=== PATIENT | male | born 1935 | race Caucasian/White ===

== ENCOUNTER → 2019-06-11 08:11 | Outpatient (BNVA) | payer MEDICARE, SELFPAY | PROVIDERS: Family Provider Internal Medicine; PCP Internal Medicine; Visit Provider Internal Medicine Cardiovascular Disease | DX: I50.9 Heart failure, unspecified (principal) | CPT/HCPCS: 80048; 83880 ==

== ENCOUNTER → 2019-11-18 10:59 | Outpatient (BNVA) | payer OTHER, SELFPAY | PROVIDERS: Family Provider Internal Medicine; PCP Internal Medicine; Visit Provider Internal Medicine Cardiovascular Disease | DX: R06.02 Shortness of breath (principal); I50.22 Chronic systolic (congestive) heart failure; I42.8 Other cardiomyopathies | CPT/HCPCS: 80048; 83880 ==

== ENCOUNTER 2020-01-06 12:40 | Outpatient (CLI) | payer OTHER, MEDICARE, SELFPAY ==
--- NOTE | 2020-01-06 13:04 | USCV_ITS ---
Manny Melendez Age: 84 Gender: M : 1935 Exam Date: 01/06/2020 13:29 Ordering Phys: Dorothy Webster MD ([email or web address]) Technologist: Zachary Colmenares [place] [facility] [place]: ARRTH BP: 118 / 59 HR: 55 Rhythm: Sinus Technical Quality: Good MEASUREMENTS (Male / Female) Normal Values 2D ECHO LV Diastolic Diameter PLAX 4.9 cm 4.2 - 5.9 / 3.9 - 5.3 cm LV Systolic Diameter PLAX 3.7 cm IVS Diastolic Thickness 0.9 cm 0.6 - 1.0 / 0.6 - 0.9 cm IVS Systolic Thickness 1.3 cm LVPW Diastolic Thickness 1.0 cm 0.6 - 1.0 / 0.6 - 0.9 cm LVPW Systolic Thickness 1.3 cm LVOT Diameter 2.3 cm LV Ejection Fraction 2D Teich 47.9 % LV Ejection Fraction MOD 2C 56.2 % LV Ejection Fraction 2C AL 57.8 % LA Diameter 3.8 cm LA Width 3.9 cm LA Height 4.9 cm RA Width 3.2 cm RA Height 5.5 cm Aorta at Sinotubular Diameter 1.2 cm M-MODE LV Diastolic Diameter MM 5.3 cm 4.2 - 5.9 / 3.9 - 5.3 cm LV Systolic Diameter MM 3.2 cm LV Ejection Fraction MM Teich 70.4 % IVS Diastolic Thickness MM 1.1 cm 0.6 - 1.0 / 0.6 - 0.9 cm IVS Systolic Thickness MM 1.8 cm LVPW Diastolic Thickness MM 1.6 cm 0.6 - 1.0 / 0.6 - 0.9 cm LVPW Systolic Thickness MM 2.1 cm RV Diastolic Diameter MM 1.1 cm Aortic Annulus Diameter 3.5 cm LA Ao Ratio MM 1.1 DOPPLER AV Peak Velocity 154.0 cm/s LVOT Peak Velocity 108.0 cm/s AV Area Cont Eq vti 3.1 cm squared AV Area Cont Eq pk 3.0 cm squared MV Area PHT 5.8 cm squared Mitral E to A Ratio 0.5 MV E' Velocity 8.0 cm/s Mitral E to MV E' Ratio 7.3 Mitral E to LV E' Lateral Ratio 5.9 Mitral E to LV E' Septal Ratio 9.4 TR Peak Velocity 271.0 cm/s TR Peak Gradient 29.4 mmHg TV Peak E Velocity 69.0 cm/s Right Atrial Pressure 3.0 mmHg Pulmonary Artery Systolic Pressu 32.4 mmHg PV Peak Velocity 142.0 cm/s FINDINGS Left Ventricle Diffuse hypokinesia of the left ventricle with an ejection fraction of 47%. Because of the frequent ventricular arrhythmia, ejection fraction estimation and segmental wall motion analysis difficult. Right Ventricle Normal right ventricular size and systolic function. Right Atrium Upper limit of normal size. Left Atrium Upper limit of normal size Mitral Valve Thickened mitral valve. Mild mitral annular calcification. Mild to moderate mitral valve regurgitation. Aortic Valve Thickened aortic valve. Trace aortic valve regurgitation. Tricuspid Valve Trace tricuspid valve regurgitation. Pulmonic Valve No gross abnormalities noted Pericardium No pericardial effusion. Aorta Normal aortic annulus size. CONCLUSIONS Diffuse hypokinesia of the left ventricle with an ejection fraction of 47%. Both atria, pulmonary normal size.Thickened mitral valve. Mild mitral annular calcification. Mild to moderate mitral valve regurgitation. Thickened aortic valve. Trace aortic valve regurgitation. Trace tricuspid valve regurgitation. Estimated pulmonary artery peak systolic pressure 32 mmHg There is no pericardial effusion. There are no intracardiac masses. No previous study is available for comparison. Dr Dorothy Webster MD FAC (Electronically Signed) Final Date: 06 January 2020 20:17 S
== END 2020-01-06 12:41 | disposition home or self-care (01) ==
PROVIDERS: Family Provider Internal Medicine; PCP Internal Medicine; Visit Provider Internal Medicine Cardiovascular Disease
DX: I42.8 Other cardiomyopathies (principal); I08.3 Combined rheumatic disorders of mitral, aortic and tricuspid valves
CPT/HCPCS: 93306

== ENCOUNTER 2020-05-23 09:55 | Emergency (ER) | payer OTHER, MEDICARE, SELFPAY ==
[2020-05-23 10:09] VITALS: BP 156/66; PULSE 56; RESP 15; TEMP 36.3; O2SAT 97; BMI 26.4
--- NOTE | 2020-05-23 11:38 | W.ED.GENADLT ---
HPI - General Adult General: Chief complaint: General Medical Stated complaint: wants checked for kidney stones Time Seen by Provider: 05/23/20 11:08 History of Present Illness: HPI narrative: 85-year-old male presents emergency room with complaint of left-sided flank pain that began 2-1/2 days ago. It got progressively worse until this morning is actually a little better this morning. He states it seemed to begin resolving last night. His appetite has been poor he is not had a bowel movement for the last 3 days now. Denies any fever sweats chills nausea vomiting or diarrhea. [facility] He had seen Dr. Webster earlier this week for his cardiac issues and after that he began to have the discomfort. He is not noted any hematuria. He was thought to have a kidney stone in the past and states this feels similar to that. Onset (ago): day(s) (2-/2) Location: back Radiation: flank Severity: moderate Quality: stabbing Pain Consistency: intermittent (Improved) Relieving factors: rest (Lying flat) Exacerbating factors: other (Standing or ambulating) Associated symptoms: Deny chest pain, confusion, cough, diaphoresis, decreased appetite, dyspnea, fevers/chills, headache(s), malaise, nausea, rash, palpitations, seizures, short of breath, syncope, vomiting or weakness Treatments prior to arrival: none Review of Systems Const: Denies: malaise or diaphoresis ENMT: Denies: throat pain, ear or mastoid pain, nasal discharge or nasal congestion Card: Denies: chest pain, palpitations or syncope Resp: Denies: dyspnea GI: Denies: nausea or vomiting : Denies: flank pain, dysuria, urinary frequency or urinary urgency Skin/Breast: Denies: rash Neuro: Denies: headache(s) or confusion PFS ED PFSH: Medical History Benign essential HTN Chronic systolic heart failure Ischemic cardiomyopathy Non-ischemic cardiomyopathy Non-rheumatic mitral regurgitation Ventricular arrhythmia Family History Sister CAD (coronary artery disease) Brother CAD (coronary artery disease) Cancer Lung disease Denies family history of Diabetes Clotting disorder Dementia Hyperlipidemia Chronic kidney disease (CKD) Suicide Anesthesia complication Bleeding disorder Hypertension Stroke Social History Smoking and tobacco status: never smoked Alcohol intake: never Substance/Drug Use: never Physical Exam Const: COMMON NORMALS: no acute distress GENERAL APPEARANCE: cooperative and comfortable ORIENTATION/CONSCIOUSNESS: Yes awake, Yes oriented to person, Yes oriented to place and Yes oriented to time HENMT: COMMON NORMALS: hearing grossly normal bilaterally Neck/C-Spine: COMMON NORMALS: no JVD Resp: COMMON NORMALS: normal respiratory effort, No retractions, No use of accessory muscles and clear to auscultation bilaterally AUSCULTATION: clear to auscultation bilaterally Cardio: COMMON NORMALS: no JVD, regular rate, regular rhythm and No murmurs present (Cardio) RATE: regular rate RHYTHM: regular rhythm GI: COMMON NORMALS: Soft to palpation and No hepatosplenomegaly present AUSCULTATION: Yes normoactive bowel sounds PALPATION: Yes Soft to palpation, No Tenderness to palpation present (GI), No Guarding due to palpation present (GI) and Yes No hepatosplenomegaly present Extremity: COMMON NORMALS: normal to inspection, capillary refill normal, no clubbing, cyanosis or edema, no calf tenderness and no pedal edema Neuro: SENSORIUM/ORIENTATION: Yes oriented to person, Yes oriented to place and Yes oriented to time Skin: COMMON NORMALS: no rashes or lesions noted GENERAL SKIN EXAM: no rashes or lesions noted Course Vital Signs: Vital signs: Vital Signs Temperature 97.3 F L 05/23/20 10:09 Pulse Rate 64 05/23/20 14:00 Respiratory Rate 18 05/23/20 14:00 Blood Pressure 149/86 05/23/20 14:00 Pulse Oximetry 97 05/23/20 14:00 MDM - General Adult MDM Narrative: Medical decision making narrative: CT and UA are unremarkable for evidence of a stone but do show evidence suggestive of bladder outlet obstruction on post void residual patient still is over 400 cc in his bladder given the fact he is having renal colic with that I think he is impending urinary retention. Discussed this with him I think at this point probably the best thing to do is go ahead and put a Eli in him on Monday that if we discharge him now without doing any other intervention he most likely will end up back here in the next 2 days with full blown bladder outlet obstruction and may result in further complications. He is agreeable to this we will start him on tamsulosin and have him follow-up with Dr. Mart next week. Lab Data: Labs: Lab Results 05/23/20 05/23/20 05/23/20 Range/Units 11:29 11:29 11:29 WBC 7.1 (4.0-10.0) 10^3/ uL RBC 5.03 (4.1-5.3) 10^6/u L Hgb 14.1 (11.7-16.6) g/dL Hct 44.2 (42.0-52.0) % MCV 87.9 (80-94) fL MCH 28.0 (28.0-34.0) pg MCHC 31.9 (30.0-36.0) g/dL RDW 13.3 (12.1-15.1) % Plt Count 166 (130-400) 10^3/c mm MPV 10.8 H (7.4-10.4) fL Neut % (Auto) 73.1 % Lymph % (Auto) 15.4 % Payne % (Auto) 10.6 % Eos % (Auto) 0.3 % Baso % (Auto) 0.3 % Neut # (Auto) 5.16 (1.8-7.7) 10^3/u L Lymph # (Auto) 1.1 (0.8-4.8) 10^3/u L Payne # (Auto) 0.8 (0.2-0.9) 10^3/u L Eos # (Auto) 0.0 (0.0-0.8) 10^3/u L Baso # (Auto) 0.0 (0.0-0.1) 10^3/u L Nucleated RBC % (a uto) 0 % Nucleated RBCs # 0.0 /100WBC Sodium 135 L (136-145) mmol/L Potassium 4.2 (3.5-5.1) mmol/L Chloride 99 (98-107) mmol/L Carbon Dioxide 25 (22-29) mmol/L Anion Gap 15.2 (5-19) BUN 12 (8-23) mg/dL Creatinine 1.1 (0.7-1.2) mg/dL GFR Calculation Not Reportable Glucose 99 (65-115) mg/dL Calculated Osmolal ity 280 L (285-295) mOsm/k g Calcium 9.2 (8.5-10.5) mg/dL Urine Color Yellow (Yellow) Urine Appearance Clear (CLEAR) Urine pH 5 (5-7) Ur Specific Gravit y 1.010 (1.005-1.030) Urine Protein Neg (Negative) Urine Glucose (UA) Norm (Normal) Urine Ketones 1+ H (Negative) Urine Blood Neg (Negative) Urine Nitrate Negative (Negative) Urine Bilirubin Neg (Negative) Urine Urobilinogen Norm (Negative) mg/dL Ur Leukocyte Jazzmine ase Negative (Negative) Discharge Plan Discharge Patient Disposition: Home Clinical Impression: BPH with urinary obstruction Condition: Stable Prescriptions: New tamsulosin 0.4 mg capsule 0.4 mg PO DAILY Qty: 30 RF: 0 No Action furosemide 20 mg tablet 20 mg PO DAILY@0600 RF: 0 potassium chloride [Klor-Con 10] 10 mEq tablet extended release 10 meq PO DAILY@0600 RF: 0 omeprazole 20 mg capsule,delayed release(DR/EC) 20 mg PO DAILY@0600 RF: 0 aspirin [Adult Low Dose Aspirin] 81 mg tablet,delayed release (DR/EC) 81 mg PO DAILY@0600 RF: 0 metoprolol succinate 25 mg tablet extended release 24 hr 50 mg PO DAILY@0600 RF: 0 spironolactone 25 mg tablet 25 mg PO DAILY@0600 RF: 0 Vitamin D3 25 mcg (1,000 unit) Tablet 25 mcg PO DAILY@0600 RF: 0 isosorbide mononitrate 30 mg tablet extended release 24 hr 30 mg PO DAILY@0600 RF: 0 sacubitril-valsartan 97-103 mg tablet 1 tab PO BID@0600,1800 RF: 0 Discharge Orders: Discharge ED (Routine); Ordered 05/23/20 Ordered By: Rubio Gunn Referrals: Jakob Mart MD [Physician] - Activity Restrictions/Additional Instructions: Case management will call with referral to Dr. Mart. Start tamsulosin 1 tablet every night. Coding Level of Care Code ED Corrective Therapy Aide for g Fwd Exam Comprehensive
[2020-05-23 11:43] VITALS: BP 130/69
[2020-05-23 11:43] LABS: Add Urine Microscopic? NO
[2020-05-23 11:47] LABS: Basophils % 0.3 %; Eosinophils % 0.3 %; Hematocrit 44.2 % (42.0-52.0); Hemoglobin 14.1 g/dL (11.7-16.6); Lymphocytes # 1.1 10^3/uL (0.8-4.8); Lymphocytes % 15.4 %; Mean Corpuscular HGB Conc 31.9 g/dL (30.0-36.0); Mean Corpuscular Volume 87.9 fL (80-94); Mean Platelet Volume 10.8 fL (7.4-10.4); Monocytes # 0.8 10^3/uL (0.2-0.9); Monocytes % 10.6 %; Neutrophils # 5.16 10^3/uL (1.8-7.7); Neutrophils % 73.1 %; Nucleated Red Blood Cells % 0 %; Platelet Count 166 10^3/cmm (130-400); Red Blood Count 5.03 10^6/uL (4.1-5.3); Red Cell Distribution Width 13.3 % (12.1-15.1); White Blood Count 7.1 10^3/uL (4.0-10.0)
[2020-05-23 11:53] LABS: Bilirubin Urine Neg (Negative); Blood Urine Neg (Negative); Glucose Urine UA Norm (Normal); Nitrate Urine Negative (Negative); Protein Urine Neg (Negative); Urine Appearance Clear (CLEAR); Urine Color Yellow (Yellow); pH Urine 5 (5-7)
[2020-05-23 11:54] LABS: Ketones Urine 1+ (Negative); Leukocyte Esterase Urine Negative (Negative); Urobilinogen Urine Norm (Negative)
[2020-05-23 12:10] LABS: Anion Gap 15.2 (5-19); Blood Urea Nitrogen 12 mg/dL (8-23); Calcium 9.2 mg/dL (8.5-10.5); Carbon Dioxide 25 mmol/L (22-29); Chloride 99 mmol/L (98-107); Glucose 99 mg/dL (65-115); Osmolality Calculated 280 mOsm/kg (285-295); Potassium 4.2 mmol/L (3.5-5.1); Sodium 135 mmol/L (136-145)
--- NOTE | 2020-05-23 12:37 | CTR_ITS ---
PROCEDURE INFORMATION: Exam: CT Abdomen And Pelvis With Contrast Exam date and time: 05/23/2020 1:10 PM Age: 85 years old Clinical indication: Abdominal pain; Left; Patient HX: C/O L flank pain w constipation; Additional info: Abd pain TECHNIQUE: Imaging protocol: Computed tomography of the abdomen and pelvis with intravenous contrast. Radiation optimization: All CT scans at this facility use at least one of these dose optimization techniques: automated exposure control; mA and/or kV adjustment per patient size (includes targeted exams where dose is matched to clinical indication); or iterative reconstruction. Contrast material: OMNI 300; Contrast volume: 95 ml; Contrast route: INTRAVENOUS (IV); COMPARISON: No relevant prior studies available. RADIATION DOSE METRICS: Total DLP (mGy-cm): 646.33 FINDINGS: Liver: Small 1.1 cm cyst central aspect of liver. Gallbladder and bile ducts: Two small 6 mm calcified gallstones in dependent aspect of gallbladder. Pancreas: Normal. No ductal dilation. Spleen: Normal. No splenomegaly. Adrenal glands: Normal. No mass. Kidneys and ureters: Moderate bilateral hydroureteronephrosis. Probable back flow phenomenon. No kidney or ureteral stone evident. Stomach and bowel: 4.7 cm proximal stomach containing hiatal hernia. Moderate amount of stool throughout the colon. Appendix: No evidence of appendicitis. Intraperitoneal space: Unremarkable. No free air. No significant fluid collection. Vasculature: Tortuous aorta and iliac arteries with mild atherosclerotic calcification. Lymph nodes: Unremarkable. No enlarged lymph nodes. Urinary bladder: Mildly distended urinary bladder with mild wall trabeculation and small diverticula. Reproductive: Enlarged prostate measuring 5.6 cm. Bones/joints: Lower thoracic and lumbar levoscoliosis with superimposed degenerative disc/spondylosis changes. Soft tissues: Unremarkable. CT/CT abdomen pelvis w con* [id number] IMPRESSION: 1.) Enlarged prostate. Mildly distended urinary bladder with mild wall trabeculation and small diverticula. Moderate bilateral hydroureteronephrosis suggesting back flow phenomenon. 2.) Moderate amount of stool throughout the colon. 3.) Small gallstones. Radiation Dose CTDIVOL = (mGy): DLP = 646.33 (mGy-cm)
[2020-05-23 13:23] VITALS: BP 147/87
[2020-05-23] MEDS: iohexol 300 mg/mL 100 mL Btl IV (13:40)
[2020-05-23 14:00] VITALS: BP 149/86; PULSE 64; RESP 18; O2SAT 97
[2020-05-23 15:27] VITALS: BP 124/76; PULSE 64; RESP 18; O2SAT 95
--- NOTE | 2020-05-25 08:53 | DCPLANNER ---
data processing manager had message to schedule a followup appointment for patient with Dr. Matr. data processing manager called the office of Dr. Mart, spoke with Minoo, gave clinic patients information. data processing manager was told that patients information would be printed and reviewed. Clinic will call patient with appointment information.
--- NOTE | 2020-05-28 11:02 | DCPLANNER ---
Patient had a follow up appointment scheduled for 05.28.[address] Mart - patient did attend appointment.
--- NOTE | 2020-05-28 11:04 | DCPLANNER ---
Patient had a follow up appointment scheduled for 05.28.[address] Mart - patient did attend the appointment.
== END 2020-05-23 15:27 | disposition home or self-care (01) ==
PROVIDERS: Emergency Provider Family Medicine; PCP Family Medicine
DX: N40.1 Benign prostatic hyperplasia with lower urinary tract symptoms (principal); N13.8 Other obstructive and reflux uropathy; Z79.82 Long term (current) use of aspirin; I11.0 Hypertensive heart disease with heart failure; I50.22 Chronic systolic (congestive) heart failure
CPT/HCPCS: 12345; 51702; 51798; 74177; 80048; 81003; 85025; 99282; 99283; Q9967

== ENCOUNTER 2020-06-30 13:18 | Outpatient (CLI) | payer OTHER, SELFPAY ==
--- NOTE | 2020-06-30 13:30 | US_ITS ---
WS: [id number] ULTRASOUND RENAL TECHNIQUE: Ultrasound examination of both kidneys. CLINICAL INFORMATION: BILATERAL HYDRONEPHROSIS COMPARISON: None. FINDINGS: RIGHT: Right kidney is normal in size and appearance. Echogenicity: Normal. Cortical thickness: 1.0 cm; Normal. Hydronephrosis: None. Perinephric fluid: None. Right kidney measures: 10.2 cm x 4.7 cm x 3.3 cm. LEFT: Left kidney is normal in size and appearance. Echogenicity: Normal. Cortical thickness: 0.9 cm; Normal. Hydronephrosis: None. Perinephric fluid: None. Left kidney measures: 12.1 cm x 4.8 cm x 3.5 cm. Normal visualized aorta. Lobulated diffuse bladder wall thickening likely due to bladder outlet obstr uction. Enlarged prostate measuring 5.1 x 5.8 x 5.1 cm. US/US renal BI* [id number] IMPRESSION: 1. Normal renal ultrasound. 2. Enlarged prostate.
== END 2020-06-30 13:19 | disposition home or self-care (01) ==
PROVIDERS: PCP Family Medicine; Visit Provider Urology
DX: N13.30 Unspecified hydronephrosis (principal); N40.0 Benign prostatic hyperplasia without lower urinary tract symptoms
CPT/HCPCS: 76770; 81003

== ENCOUNTER → 2020-09-29 13:02 | Outpatient (BNVA) | payer OTHER, SELFPAY | PROVIDERS: PCP Family Medicine; Visit Provider Urology | DX: N40.1 Benign prostatic hyperplasia with lower urinary tract symptoms (principal); R33.8 Other retention of urine | CPT/HCPCS: 81003 ==

== ENCOUNTER → 2020-11-11 12:50 | Outpatient (BNVA) | payer OTHER, SELFPAY | PROVIDERS: PCP Family Medicine; Visit Provider Urology | DX: R33.8 Other retention of urine (principal); N40.1 Benign prostatic hyperplasia with lower urinary tract symptoms | CPT/HCPCS: 81003 ==

== ENCOUNTER 2020-11-23 11:08 | Outpatient (CLI) | payer OTHER, SELFPAY | END 2020-11-23 11:09 | disposition home or self-care (01) | LOC: LAB 02-23 12:32 | PROVIDERS: PCP Family Medicine; Visit Provider Internal Medicine Cardiovascular Disease | DX: R06.02 Shortness of breath (principal); I50.33 Acute on chronic diastolic (congestive) heart failure | CPT/HCPCS: 80048; 83880 ==

== ENCOUNTER → 2020-12-08 09:02 | Outpatient (BNVA) | payer OTHER, SELFPAY | PROVIDERS: PCP Family Medicine; Visit Provider Internal Medicine Cardiovascular Disease | DX: I42.8 Other cardiomyopathies (principal); I50.22 Chronic systolic (congestive) heart failure; I49.9 Cardiac arrhythmia, unspecified; I25.5 Ischemic cardiomyopathy; I10 Essential (primary) hypertension | CPT/HCPCS: 80048; 83880 ==

== ENCOUNTER → 2020-12-29 08:34 | Outpatient (BNVA) | payer OTHER, SELFPAY | PROVIDERS: PCP Family Medicine; Visit Provider Internal Medicine Cardiovascular Disease | DX: I25.5 Ischemic cardiomyopathy (principal); I50.22 Chronic systolic (congestive) heart failure; I49.9 Cardiac arrhythmia, unspecified; I50.9 Heart failure, unspecified; N13.30 Unspecified hydronephrosis; N40.1 Benign prostatic hyperplasia with lower urinary tract symptoms | CPT/HCPCS: 80048; 83880 ==

== ENCOUNTER 2021-01-05 13:37 | Outpatient (CLI) | payer OTHER, SELFPAY ==
--- NOTE | 2021-01-05 14:15 | USCV_ITS ---
Manny Melendez Age: 85 Gender: M : 1935 Exam Date: 01/05/2021 14:30 Ordering Phys: Dorothy Webster MD ([email or web address]) Technologist: Glory Watson Exam Location: [facility] – [place] Indication: other chest pain BP: 106 / 50 HR: 68 Rhythm: Sinus Technical Quality: Adequate MEASUREMENTS (Male / Female) Normal Values 2D ECHO LV Diastolic Diameter PLAX 3.7 cm 4.2 - 5.9 / 3.9 - 5.3 cm LV Systolic Diameter PLAX 2.6 cm IVS Diastolic Thickness 1.4 cm 0.6 - 1.0 / 0.6 - 0.9 cm IVS Systolic Thickness 1.5 cm LVPW Diastolic Thickness 1.8 cm 0.6 - 1.0 / 0.6 - 0.9 cm LVPW Systolic Thickness 2.1 cm RV Chamber Size 3.4 cm LVOT Diameter 2.0 cm LV Ejection Fraction 2D Teich 57.2 % LV Ejection Fraction MOD 2C 47.1 % LV Ejection Fraction 2C AL 46.5 % LA Diameter 3.0 cm LA Width 3.5 cm LA Height 4.0 cm RA Width 3.4 cm RA Height 4.4 cm Aorta at Sinotubular Diameter 2.6 cm M-MODE Aortic Annulus Diameter 3.1 cm LA Ao Ratio MM 0.9 MV E Point Septal Separation 1.3 cm DOPPLER AV Peak Velocity 108.0 cm/s LVOT Peak Velocity 94.0 cm/s AV Area Cont Eq vti 2.4 cm squared AV Area Cont Eq pk 2.7 cm squared MV Area PHT 5.0 cm squared Mitral E to A Ratio 0.5 MV E' Velocity 27.5 cm/s Mitral E to MV E' Ratio 7.4 Mitral E to LV E' Lateral Ratio 5.7 Mitral E to LV E' Septal Ratio 10.6 TR Peak Velocity 187.8 cm/s TR Peak Gradient 14.1 mmHg TV Peak E Velocity 38.0 cm/s Right Atrial Pressure 3.0 mmHg Pulmonary Artery Systolic Pressu 17.1 mmHg PV Peak Velocity 92.0 cm/s RV Acceleration Time 0.2 s RV Ejection Time 0.3 s RV AcT/ET 0.6 FINDINGS Left Ventricle Normal left ventricular size. LV systolic function is borderline low with EF of 45-50%. Global hypokinesis is seen. Grade 1 diastolic dysfunction Right Ventricle The right ventricle is normal in size and function. Right Atrium The right atrium is normal in size. Left Atrium The left atrium is normal in size. Mitral Valve Thickened mitral valve without significant stenosis or prolapse. There is mild mitral regurgitation. Aortic Valve Structurally normal aortic valve without significant sclerosis or stenosis. There is trace aortic regurgitation. Tricuspid Valve Structurally normal tricuspid valve without significant stenosis. Mild tricuspid regurgitation. RVSP is 20-25mmHg. Pulmonic Valve Structurally normal pulmonic valve without significant stenosis. There is trace pulmonic regurgitation. Pericardium Normal pericardium without effusion. Aorta Normal ascending aorta dimension. CONCLUSIONS LV systolic function is borderline low with EF of 45-50% Grade 1 diastolic dysfunction Mild mitral regurgitation Trace aortic regurgitation Trace pulmonic regurgitation Compared to prior echocardiogram from 01/06/2020, no significant changes are noted Remy Gonsalez MD (Electronically Signed) Final Date: 09 January 2021 21:39 S
== END 2021-01-05 13:38 | disposition home or self-care (01) ==
PROVIDERS: PCP Family Medicine; Visit Provider Internal Medicine Cardiovascular Disease
DX: R07.89 Other chest pain (principal); I34.0 Nonrheumatic mitral (valve) insufficiency; I51.9 Heart disease, unspecified
CPT/HCPCS: 80048; 83880; 93306

== ENCOUNTER → 2021-01-11 08:58 | Outpatient (BNVA) | payer OTHER, SELFPAY | PROVIDERS: PCP Family Medicine; Visit Provider Internal Medicine Cardiovascular Disease | DX: I42.8 Other cardiomyopathies (principal); I50.22 Chronic systolic (congestive) heart failure | CPT/HCPCS: 80048; 83880 ==

== ENCOUNTER → 2021-01-26 09:02 | Outpatient (BNVA) | payer OTHER, SELFPAY | PROVIDERS: PCP Family Medicine; Visit Provider Internal Medicine Cardiovascular Disease | DX: I25.5 Ischemic cardiomyopathy (principal); I50.22 Chronic systolic (congestive) heart failure; I49.9 Cardiac arrhythmia, unspecified; I42.8 Other cardiomyopathies | CPT/HCPCS: 80048; 83880 ==

== ENCOUNTER → 2021-02-09 08:49 | Outpatient (BNVA) | payer OTHER, SELFPAY | PROVIDERS: PCP Family Medicine; Visit Provider Internal Medicine Cardiovascular Disease | DX: I50.22 Chronic systolic (congestive) heart failure (principal); I25.5 Ischemic cardiomyopathy; N13.30 Unspecified hydronephrosis; I49.9 Cardiac arrhythmia, unspecified; I34.0 Nonrheumatic mitral (valve) insufficiency | CPT/HCPCS: 80048; 83880 ==

== ENCOUNTER → 2021-02-25 08:26 | Outpatient (BNVA) | payer OTHER, SELFPAY | PROVIDERS: PCP Family Medicine; Visit Provider Internal Medicine Cardiovascular Disease | DX: I25.5 Ischemic cardiomyopathy (principal); I50.22 Chronic systolic (congestive) heart failure | CPT/HCPCS: 80048; 83880 ==

== ENCOUNTER → 2021-03-08 08:48 | Outpatient (BNVA) | payer OTHER, SELFPAY | PROVIDERS: PCP Family Medicine; Visit Provider Internal Medicine Cardiovascular Disease | DX: I50.22 Chronic systolic (congestive) heart failure (principal); I25.5 Ischemic cardiomyopathy; I49.9 Cardiac arrhythmia, unspecified | CPT/HCPCS: 80048; 83880 ==

== ENCOUNTER 2021-04-30 10:18 | Observation (INO) | payer OTHER, MEDICARE, SELFPAY ==
[2021-04-30 10:24] VITALS: BP 166/73; PULSE 69; RESP 16; TEMP 36.6; O2SAT 98; BMI 23.3
--- NOTE | 2021-04-30 10:43 | ECG_ITS ---
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1935 Requested By: Rubio Wahl Order Number: [id number] Reading MD: JOSI FAROOQ Measurements Intervals Jackson Rate: 71 P: 51 OR: 171 QRS: -40 QRSD: 149 T: 5 QT: 421 QTc: 459 Interpretive Statements SINUS RHYTHM WITH OCCASIONAL VENTRICULAR PREMATURE COMPLEXES LEFT AXIS DEVIATION [QRS AXIS < -30] INTRAVENTRICULAR CONDUCTION DELAY [130+ ms QRS DURATION] Compared to ECG 10/12/2018 12:49:15 Left-axis deviation now present Intraventricular conduction delay now present Atrial abnormality no longer present Myocardial infarct finding no longer present Electronically Signed On 04-30-2021 14:29:04 GRAVURE PRINTING MACHINIST by JOSI FAROOQ [id number]
--- NOTE | 2021-04-30 10:43 | ED_ITS ---
HPI - Altered Mental Status General: Chief Complaint: Altered Mental Status Stated Complaint: FATIGUED X 5 DAYS: STATES HAS OVERDONE IT Time Seen by Provider: 04/30/21 10:23 History of Present Illness: HPI narrative: 86-year-old male presents emergency room stating he feels weak and fatigued. About 10 days ago was exposed to Covid he states he has felt poorly since then. He denies any cough anosmia or shortness of breath. He does complain of some dysuria. He repeatedly states he just needs to be given some antibiotics and he will feel better. He denies any chest pain denies any abdominal discomfort or flank pain. No hematuria hematemesis or coffee-ground emesis no hematochezia or melena. He is alert and oriented x3 when questioned directly. MD complaint: weakness Onset (ago): day(s) (5) Severity: mild Consistency of symptoms: Getting Worse Context: other (Potential Covid exposure) Associated symptoms: Deny auditory hallucinations, visual hallucinations, delusions or depression Review of Systems Const: Denies: fever(s), chills, body aches, change in appetite, fatigue or malaise ENMT: Denies: throat pain, ear or mastoid pain, nasal discharge or nasal congestion Card: Denies: chest pain, edema, dyspnea on exertion or orthopnea Resp: Denies: dyspnea, productive cough or non-productive cough GI: Denies: abdominal pain, nausea, vomiting, hematemesis, coffee ground emesis, diarrhea, constipation, bloating, hematochezia or melena : Denies: flank pain, dysuria, urinary frequency or urinary urgency Skin/Breast: Denies: rash or pruritus Psych: Denies: depression, visual hallucinations or auditory hallucinations PFSH ED PFSH: Medical History Acute urinary retention Benign essential HTN Bilateral hydronephrosis BPH loc w urin obs/LUTS Chronic systolic heart failure Ischemic cardiomyopathy Non-ischemic cardiomyopathy Non-rheumatic mitral regurgitation Ventricular arrhythmia Surgical History History of tonsillectomy and adenoidectomy Family History Sister CAD (coronary artery disease) Brother CAD (coronary artery disease) Cancer Lung disease Father , at age 84 Neuropathy Mother , at age 93 No problems noted. Denies family history of Diabetes Clotting disorder Dementia Hyperlipidemia Chronic kidney disease (CKD) Suicide Anesthesia complication Bleeding disorder Hypertension Stroke Social History Smoking and tobacco status: never smoked Alcohol intake: never Household members: spouse Marital status: Current occupational status: retired History of recent travel: No Physical Exam Const: COMMON NORMALS: no acute distress GENERAL APPEARANCE: cooperative and comfortable ORIENTATION/CONSCIOUSNESS: Yes awake, Yes oriented to person, Yes oriented to place and Yes oriented to time HENMT: COMMON NORMALS: normocephalic, atraumatic and hearing grossly normal bilaterally HEAD & SCALP: normocephalic and atraumatic Neck/C-Spine: COMMON NORMALS: no JVD Resp: COMMON NORMALS: normal respiratory effort, No retractions, No use of accessory muscles and clear to auscultation bilaterally AUSCULTATION: clear to auscultation bilaterally Cardio: COMMON NORMALS: no JVD, regular rate, regular rhythm and No murmurs present (Cardio) RATE: regular rate RHYTHM: regular rhythm GI: COMMON NORMALS: Soft to palpation and No hepatosplenomegaly present AUSCULTATION: Yes normoactive bowel sounds PALPATION: Yes Soft to palpation, No Tenderness to palpation present (GI), No Guarding due to palpation present (GI) and Yes No hepatosplenomegaly present Extremity: COMMON NORMALS: normal to inspection, capillary refill normal, no clubbing, cyanosis or edema, no calf tenderness and no pedal edema Neuro: SENSORIUM/ORIENTATION: Yes oriented to person, Yes oriented to place and Yes oriented to time Psych: THOUGHT CONTENT: No delusions Skin: COMMON NORMALS: no rashes or lesions noted GENERAL SKIN EXAM: no rashes or lesions noted Course Vital Signs: Vital signs: Vital Signs Temperature 97.8 F 04/30/21 10:24 Pulse Rate 74 04/30/21 11:20 Respiratory Rate 16 04/30/21 10:24 Blood Pressure 147/71 04/30/21 11:20 Pulse Oximetry 98 04/30/21 11:20 MDM - Altered Mental Status MDM Narrative: Medical decision making narrative: Patient has altered mental status. This is multifactorial his hyponatremia rhabdomyolysis and cystitis are all contributing. He also has neutropenia and hyponatremia. On a secondary note the patient is Covid positive but he is relatively asymptomatic from Covid. He will be admitted to the hospital for the other diagnosis, if the patient did not have these diagnoses he would be discharged home for outpatient management of his COVID. Given this he still does qualify for monoclonal antibodies his admission is not for COVID-19. Given his overall health and age of the other current active medical problems I think he is at very high risk for significant deterioration from his COVID and would benefit greatly from the monoclonal antibodies. Have discussed with Dr. Aden will be admitting we both agree on this with notified pharmacy and have ordered monoclonal antibodies will initiate them in the emergency room along with IV antibiotics, blood cultures, and appropriate fluid replacement to normalize his hyponatremia and improve on his rhabdomyolysis. Lab Data: Labs: Lab Results 04/30/21 04/30/21 04/30/21 11:05 11:46 11:46 WBC RBC Hgb Hct MCV MCH MCHC RDW Plt Count MPV Neut % (Auto) Lymph % (Auto) Stark % (Auto) Eos % (Auto) Baso % (Auto) Neut # (Auto) Lymph # (Auto) Stark # (Auto) Eos # (Auto) Baso # (Auto) Nucleated RBC % (a uto) Nucleated RBCs # Specimen Type Arterial Sample Site Radial, right ABG pH 7.53 H (7.35-7.45) ABG pCO2 24.8 mmHg L mmHg (35-45) ABG pO2 85.6 mmHg mmHg (80.0-100.0) ABG HCO3 20.4 mmol/L L mmo l/L (22-26) ABG O2 Saturation 97.9 ABG Base Excess -0.8 mmol/L mmol/ L (-2.0-2.0) Alonso Test Pos A-a O2 Gradient 4.3 mmHg L mmHg (5-10) Hematocrit 40.4 % L % (42-52) Hgb O2 Saturation 96.6 % % (95-100) Carboxyhemoglobin 0.5 %THgb %THgb (0.4-20.1) Methemoglobin 0.9 % % (0.4-1.5) Total Hemoglobin 13.2 g/dL L g/dL (14-18) Sodium 123.0 mmol/L L mm ol/L (131-143) Potassium 4.3 mmol/L mmol/L (3.5-5.0) Glucose 104.0 mg/dL mg/dL (70-115) Ionized Calcium 1.1 mmol/L mmol/L (1.1-1.4) O2 Delivery Device Room air FiO2 21.0 % % Indirect Sales Representative ID Anonymous Chloride Carbon Dioxide Anion Gap BUN Creatinine GFR Calculation Calculated Osmolal ity Calcium Total Bilirubin AST ALT Alkaline Phosphata se Creatine Kinase Total Protein Albumin Globulin Urine Color Yellow (Yellow) Urine Appearance Clear (CLEAR) Urine pH 5 (5-7) Ur Specific Gravit y 1.005 (1.005-1.030) Urine Protein Neg (Negative) Urine Glucose (UA) Norm (Normal) Urine Ketones 1+ H (Negative) Urine Blood 2+ H (Negative) Urine Nitrate Negative (Negative) Urine Bilirubin Neg (Negative) Urine Urobilinogen Norm mg/dL mg/dL (Negative) Ur Leukocyte Jazzmine ase 2+ H (Negative) Urine RBC 0-4 /hpf H /hpf (0-2) Urine WBC >100 /hpf H /hpf (0-5) Ur Squamous Epith Cells 0-4 /hpf H /hpf (0-5) Amorphous Sediment Not Reportable Urine Bacteria Trace /hpf /hpf (NONE) Urine Yeast 2+ /hpf H /hpf SARS-CoV-2 Ag (Rap id) Positive H (Negative) 04/30/21 04/30/21 11:57 11:57 WBC 2.0 10^3/uL L 10^ 3/uL (4.0-10.0) RBC 4.60 10^6/uL 10^6 /uL (4.1-5.3) Hgb 13.3 g/dL g/dL (11.7-16.6) Hct 39.1 % L % (42.0-52.0) MCV 85.0 fl fl (80-94) MCH 28.9 pg pg (28.0-34.0) MCHC 34.0 g/dL g/dL (30.0-36.0) RDW 13.0 % % (12.1-15.1) Plt Count 74 10^3/cmm L 10^ 3/cmm (130-400) MPV 11.3 fL H fL (7.4-10.4) Neut % (Auto) 53.8 % % Lymph % (Auto) 27.1 % % Stark % (Auto) 19.1 % % Eos % (Auto) 0.0 % % Baso % (Auto) 0.0 % % Neut # (Auto) 1.07 10^3/uL L 10 ^3/uL (1.8-7.7) Lymph # (Auto) 0.5 10^3/uL L 10^ 3/uL (0.8-4.8) Stark # (Auto) 0.4 10^3/uL 10^3/ uL (0.2-0.9) Eos # (Auto) 0.0 10^3/uL 10^3/ uL (0.0-0.8) Baso # (Auto) 0.0 10^3/uL 10^3/ uL (0.0-0.1) Nucleated RBC % (a uto) 0 % % Nucleated RBCs # 0.0 /100WBC /100W BC Specimen Type Sample Site ABG pH ABG pCO2 ABG pO2 ABG HCO3 ABG O2 Saturation ABG Base Excess Alonso Test A-a O2 Gradient Hematocrit Hgb O2 Saturation Carboxyhemoglobin Methemoglobin Total Hemoglobin Sodium 123 mmol/L L mmol /L (136-145) Potassium 4.5 mmol/L mmol/L (3.5-5.1) Glucose 96 mg/dL mg/dL (65-115) Ionized Calcium O2 Delivery Device FiO2 Indirect Sales Representative ID Chloride 90 mmol/L L mmol/ L (98-107) Carbon Dioxide 18 mmol/L L mmol/ L (22-29) Anion Gap 19.5 H (5-19) BUN 18 mg/dL mg/dL (8-23) Creatinine 1.2 mg/dL mg/dL (0.7-1.2) GFR Calculation Not Reportable Calculated Osmolal ity 258 mOsm/kg L mOs m/kg (285-295) Calcium 7.8 mg/dL L mg/dL (8.5-10.5) Total Bilirubin 0.4 mg/dL mg/dL (0.15-1.2) AST 64 U/L H U/L (0-40) ALT 23 U/L U/L (0-41) Alkaline Phosphata se 50 IU/L IU/L (40-130) Creatine Kinase 1396 U/L H* U/L (39-308) Total Protein 6.5 g/dL L g/dL (6.6-8.7) Albumin 3.6 g/dL g/dL (3.5-5.2) Globulin 2.9 g/dL g/dL (1.3-4.6) Urine Color Urine Appearance Urine pH Ur Specific Gravit y Urine Protein Urine Glucose (UA) Urine Ketones Urine Blood Urine Nitrate Urine Bilirubin Urine Urobilinogen Ur Leukocyte Jazzmine ase Urine RBC Urine WBC Ur Squamous Epith Cells Amorphous Sediment Urine Bacteria Urine Yeast SARS-CoV-2 Ag (Rap id) Discharge Plan Discharge Patient Disposition: Admitted As Inpatient Clinical Impression: Altered mental status, Hyponatremia, Cystitis, Rhabdomyolysis, COVID-19 Condition: Stable Coding Level of Care Code ED [employer] Machine Feeder for Sherita Fwd Exam Comprehensive
--- NOTE | 2021-04-30 10:44 | XR_ITS ---
WS: [id number] PORTABLE CHEST HISTORY: dyspnea/cough COMPARISON: 10/12/2018 Mild pulmonary hyperexpansion. No pneumothorax or pleural effusion. No pleural effusion or pneumothor ax. Cardiac size: Normal. Mediastinum/Aorta: Ectatic mildly calcified aorta. Degenerative changes at the glenohumeral joints. High riding LEFT humeral head. XR/XR chest 1V portable [id number] IMPRESSION: Mild atherosclerosis aorta. No pneumonia.
--- NOTE | 2021-04-30 10:44 | CT_ITS ---
WS: [id number] CT HEAD NONCONTRAST HISTORY: AMS TECHNIQUE: Contiguous axial imaging performed through the brain in 2.5 mm imaging. Bone and soft tiss ue windows. Sagittal and coronal reformats reviewed. All CT scans at [facility] use at least one of these dose optimization techniques: automated exposure control; mA and/or kV adjustment per pa tient size (includes targeted exams where dose is matched to clinical indication); or iterative recon struction. DLP: 950.22 mGy.cm COMPARISON: None available. No acute intracranial hemorrhage, midline shift or mass effect. Mild symmetric atrophy and mild chronic microvascular ischemic disease. Perivascular space along the inferior LEFT basal ganglia. There is a very small lacunar infarct external capsule on the RIGHT. Add itional smaller lacunar infarct in the internal capsule on the LEFT. Ventricles: Normal size with no hydrocephalus. No inferior displacement of cerebellar tonsils. Paranasal sinuses: As visualized are clear. Mastoid air cells: Well pneumatized. Calvarium and scalp: Skull is intact with no soft tissue edema or swelling. CT/CT head wo con* [id number] IMPRESSION: 1. No acute intracranial hemorrhage or edema. 2. Mild atrophy and chronic microvascular ischemic disease.
[2021-04-30 11:20] VITALS: BP 147/71; PULSE 74; O2SAT 98
[2021-04-30 11:29] LABS: ABG PCO2 24.8 mmHg (35-45); ABG PH Result 7.53 (7.35-7.45); Alveolar-Arterial Oxygen Gradi 4.3 mmHg (5-10); Arterial Blood Gas Hematocrit 40.4 % (42-52); Base Excess ABG -0.8 mmol/L (-2.0-2.0); Blood Gas Allen Test Pos; Blood Gas Operator Identificat Anonymous; Blood Gas Sample Type Arterial; Carboxyhemoglobin 0.5 %THgb (0.4-20.1); HCO3 ABG 20.4 mmol/L (22-26); HGB O2 Sat 96.6 % (95-100); Ionized Calcium Level - ABG 1.1 mmol/L (1.1-1.4); Methemoglobin 0.9 % (0.4-1.5); Oxygen Saturation ABG 97.9; PO2 ABG 85.6 mmHg (80.0-100.0); Potassium Level - ABG 4.3 mmol/L (3.5-5.0); Total Hemoglobin 13.2 g/dL (14-18)
[2021-04-30 11:31] LABS: Blood Gas Sample Site Radial, right; Oxygen Device ROOM AIR
[2021-04-30 12:05] LABS: Hematocrit 39.1 % (42.0-52.0); Hemoglobin 13.3 g/dL (11.7-16.6); Lymphocytes # 0.5 10^3/uL (0.8-4.8); Lymphocytes % 27.1 %; Mean Corpuscular Hemoglobin 28.9 pg (28.0-34.0); Mean Platelet Volume 11.3 fL (7.4-10.4); Monocytes # 0.4 10^3/uL (0.2-0.9); Monocytes % 19.1 %; Neutrophils # 1.07 10^3/uL (1.8-7.7); Neutrophils % 53.8 %; Nucleated Red Blood Cells % 0 %; Platelet Count 74 10^3/cmm (130-400)
[2021-04-30 12:25] LABS: Add Urine Microscopic? YES; Bilirubin Urine Neg (Negative); Blood Urine 2+ (Negative); Glucose Urine UA Norm (Normal); Ketones Urine 1+ (Negative); Leukocyte Esterase Urine 2+ (Negative); Nitrate Urine Negative (Negative); Protein Urine Neg (Negative); Specific Gravity, Urine 1.005 (1.005-1.030); Urine Appearance Clear (CLEAR); Urine Color Yellow (Yellow); Urobilinogen Urine Norm (Negative); pH Urine 5 (5-7)
[2021-04-30 12:39] LABS: Bacteria Urine TRACE /hpf; RBC Urine 0-4 /hpf (0-2); Squamous Epithelial Cell Urine 0-4 /hpf (0-5); WBC Urine >100 /hpf (0-5)
[2021-04-30 12:39] LABS: Alanine Aminotransferase 23 U/L (0-41); Albumin Level 3.6 g/dL (3.5-5.2); Alkaline Phosphatase 50 IU/L (40-130); Anion Gap 19.5 (5-19); Aspartate Amino Transferase 64 U/L (0-40); Blood Urea Nitrogen 18 mg/dL (8-23); Calcium 7.8 mg/dL (8.5-10.5); Carbon Dioxide 18 mmol/L (22-29); Chloride 90 mmol/L (98-107); Globulin 2.9 g/dL (1.3-4.6); Glucose 96 mg/dL (65-115); Osmolality Calculated 258 mOsm/kg (285-295); Potassium 4.5 mmol/L (3.5-5.1); Sodium 123 mmol/L (136-145); Total Bilirubin 0.4 mg/dL (0.15-1.2); Total Protein 6.5 g/dL (6.6-8.7)
[2021-04-30 12:40] LABS: Add Urine Culture? Yes
[2021-04-30 12:43] LABS: Creatine Phosphokinase 1396 U/L (39-308)
[2021-04-30 12:50] LABS: SARS Covid-2 Antigen Positive (Negative)
--- NOTE | 2021-04-30 12:53 | PC.PHAR ---
pt states he takes care of his own medications-pt brought in medication bottles-pt didnt bring in kcl but states he takes 1/2 tabs (4meq) po every other day prn rx written on 12/08/20 for 8meq daily-notes are made in the pharmacy comments
[2021-04-30] MEDS: cefTRIAXone 1,000 MG in sodium chloride 0.9% (plus) 50 ML 100 MG IV (14:42)
--- NOTE | 2021-04-30 14:58 | P.HP_ITS ---
Providers/Chief Complaint Primary Care Provider: Melinda Mcclain MD Chief Complaint: FATIGUED X 5 DAYS: STATES HAS OVERDONE IT History of Present Illness Pleasant 86-year-old gentleman with history of nonischemic cardiomyopathy, history of systolic CHF, HTN, mitral regurgitation, ventricular arrhythmia, BPH has not been feeling well for about 5 days. 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 After one of the sessions felt very cold. Legs have been feeling heavy. Fatigued. Took activated charcoal. Did not notice any improvement in symptoms. Having black stools. But says was already having black stools prior to taking the charcoal. Says his brought him to ER. In ER with noted number of metabolic abnormalities, with leukopenia 2000, neutropenia, ANC 1070, thrombocytopenia, platelets 74,000, ABG 7.53/24.8/85.6, sodium 123, carbon dioxide 18, anion gap 19.5, BUN 18, creatinine 1.2, T bili 0.4, AST 64, ALT 23, alk phos 50, rhabdomyolysis with CK 1396. UA with 1+ ketones, 2+ blood, 2+ leukocyte esterase, 0-4 RBC, more than 100 WBC, 0-4 SECs, 2+ yeast. Trace bacteria. COVID-19 positive. Reports has not been eating well recently. No headache, no fever or chills, no nausea vomiting, no diarrhea, although suspect the charcoal cleaned him out . Review of Systems Const: Reports: change in appetite and fatigue; Denies: fever(s), chills, body aches or malaise Eyes: Denies: change in vision or eye redness ENMT: Denies: throat pain, oral sores or ear or mastoid pain Card: Denies: chest pain, edema, pre-syncope or dyspnea on exertion Resp: Denies: dyspnea, productive cough, change in phlegm color or hemoptysis GI: Denies: abdominal pain, nausea, vomiting, diarrhea, constipation, hematochezia or melena : Denies: flank pain, difficulty urinating, urinary frequency or hematuria Musc: Denies: back pain, joint swelling or joint redness Skin/Breast: Denies: rash, sores or new lesions Neuro: Denies: headache(s), numbness in extremities, weakness in extremities, dizziness, confusion or seizure-like activity Endo: Denies: polyuria or polydipsia Dmitry/Lymph: Denies: easy bleeding or purpura All/Imm: Denies: urticaria, throat swelling or tongue swelling Medications/Allergies Home Medications Medication Instructions Recorded Confirmed Last Taken Type aspirin 81 mg tablet,delayed 81 mg PO DAILY@0600 07/18/19 04/30/21 05/23/20 History release omeprazole 20 mg capsule,delayed 20 mg PO DAILY@0600 07/18/19 04/30/21 05/23/20 History release cholecalciferol (vitamin D3) 25 mcg PO DAILY@0600 05/23/20 04/30/21 05/23/20 History [Vitamin D3] isosorbide mononitrate 30 mg PO DAILY@0600 05/23/20 04/30/21 05/23/20 History sacubitril-valsartan 1 tab PO BID@0600,1800 05/23/20 04/30/21 05/23/20 History spironolactone 25 mg tablet 12.5 mg PO DAILY tab 11/23/20 04/30/21 Unknown History furosemide 20 mg tablet 20 mg PO QAM #90 tab 02/26/21 04/30/21 Unknown Rx metoprolol succinate 50 mg PO DAILY 04/30/21 04/30/21 Unknown History potassium chloride 4 meq PO EVERY OTHER DAY PRN 04/30/21 04/30/21 Unknown History tamsulosin 0.4 mg PO QPM 04/30/21 04/30/21 Unknown History Allergies Allergy/AdvReac Type Severity Reaction Status Date / Time No Known Allergies Allergy Verified 04/30/21 12:46 PFSH Acute PFSH: Medical History Acute urinary retention Benign essential HTN Bilateral hydronephrosis BPH loc w urin obs/LUTS Chronic systolic heart failure Ischemic cardiomyopathy Non-ischemic cardiomyopathy Non-rheumatic mitral regurgitation Ventricular arrhythmia Surgical History History of tonsillectomy and adenoidectomy Family History Sister CAD (coronary artery disease) Brother CAD (coronary artery disease) Cancer Lung disease Father , at age 84 Neuropathy Mother , at age 93 No problems noted. Denies family history of Diabetes Clotting disorder Dementia Hyperlipidemia Chronic kidney disease (CKD) Suicide Anesthesia complication Bleeding disorder Hypertension Stroke Social History Smoking and tobacco status: never smoked Alcohol intake: never Household members: spouse Marital status: Current occupational status: retired History of recent travel: No Vitals/I&O/Wt Last Vital Signs Temp 97.8 F 04/30/21 10:24 Pulse 74 04/30/21 11:20 Resp 16 04/30/21 10:24 BP 147/71 04/30/21 11:20 Pulse Ox 98 04/30/21 11:20 Weight last 48 hrs Weight 65.771 kg Physical Exam Const: COMMON NORMALS: no acute distress, patient oriented x3 and alert GENERAL APPEARANCE: cooperative ORIENTATION/CONSCIOUSNESS: Yes awake HENMT: COMMON NORMALS: oropharynx normal Neck/C-Spine: COMMON NORMALS: no JVD Resp: COMMON NORMALS: normal respiratory effort and clear to auscultation bilaterally AUSCULTATION: clear to auscultation bilaterally Cardio: COMMON NORMALS: no JVD, regular rhythm, S1 normal heart sound present, S2 normal heart sound present and No murmurs present (Cardio) RHYTHM: regular rhythm HEART SOUNDS: S1 normal heart sound present and S2 normal heart sound present GI: COMMON NORMALS: Normal to inspection, nondistended, normoactive bowel sounds present, Soft to palpation and non-tender PALPATION: Yes Soft to palpation Extremity: COMMON NORMALS: no joint enlargement and no pedal edema Neuro: COMMON NORMALS: patient oriented x3 and moves all extremities Skin: COMMON NORMALS: no rashes or lesions noted GENERAL SKIN EXAM: no rashes or lesions noted Data : 04/30/21 11:57 04/30/21 11:57 Micro: Microbiology 04/30/21 13:40 Blood Culture - Preliminary Blood SPECIMEN COLLECTED 04/30/21 13:40 Blood Culture - Preliminary Blood SPECIMEN COLLECTED A&P Assessment and plan (1) Generalized weakness: Multifactorial generalized weakness, difficulty walking recently. With urinary tract infection, a number of metabolic abnormalities including hyponatremia, rhabdomyolysis. Noted bicytopenia. Additionally noted COVID-19. Status: Acute (2) Cystitis: Ceftriaxone. Follow-up urine cultures. Has underlying BPH. Assess kidney ultrasound. Not septic. Producing urine in ER. Status: Acute (3) Hyponatremia: Hold diuretics for now as appears on the dry side, recently with poor oral intake. Regular diet. Recheck sodium. Status: Acute (4) Bicytopenia: Appears new, possibly related to COVID-19. Monitor counts. Status: Acute (5) Rhabdomyolysis: Recently with poor oral intake, had been staying active, exerting himself raking leaves. Hold diuretics. Does not appear to be on statin. Status: Acute (6) COVID-19: Due to risk of severe disease in this 86-year-old gentleman with history of nonischemic cardiomyopathy, systolic congestive heart failure unknown amount of other, but it is, monoclonal antibody infusion is administered in ER. Status: Acute (7) BPH loc w urin obs/LUTS: Reports he is running out of Flomax. At discharge, would benefit from a refill. Status: Chronic (8) Non-ischemic cardiomyopathy: Currently does not appear decompensated. Hold furosemide, spironolactone for now given rhabdomyolysis, with poor oral intake recently. Status: Acute (9) Non-rheumatic mitral regurgitation: Status: Acute (10) Dark stools: Check Hemoccult. Status: Acute Attestations Medical Necessity Statement*: Place in observation due to generalized weakness multifactorial with hyponatremia, rhabdomyolysis, UTI, and COVID-19 in a gentleman of advanced age with high chance of worsening of his condition and risk of additional complications. Coding Level of Care Code Acute Endoscopy Specialty Technician for [facility] Diagnoses Generalized weakness R53.1 Cystitis N30.90 Hyponatremia E87.1 Bicytopenia D75.89 Rhabdomyolysis M62.82 COVID-19 U07.1 BPH loc w urin obs/LUTS N40.1 Non-ischemic cardiomyopathy I42.8 Non-rheumatic mitral regurgitation I34.0 Dark stools R19.5
[2021-04-30 16:29] VITALS: BP 129/75; PULSE 84; O2SAT 98
[2021-04-30 18:55] VITALS: RESP 21
[2021-04-30 19:59] VITALS: BP 120/49; PULSE 90; RESP 23; TEMP 36.9; O2SAT 98
[2021-04-30] MEDS: tamsulosin 0.4 mg Capsule PO (21:51)
[2021-04-30] MEDS: acetaminophen 325 mg Tablet 650 MG PO (22:36)
[2021-05-01] VITALS (7 sets, daily range): BP systolic 111–135; BP diastolic 61–79; PULSE 78–92; RESP 16–18; TEMP 36.5–37.6; O2SAT 92–98
--- NOTE | 2021-05-01 02:17 | PC.NURSE ---
Patient's home medication placed in [facility].
[2021-05-01] MEDS: isosorbide mononitrate ER 30 mg Tablet PO (05:35)
[2021-05-01] MEDS: aspirin 81 mg EC Tablet PO (05:35)
[2021-05-01] MEDS: pantoprazole DR 40 mg Tablet PO (05:35)
[2021-05-01 08:25] LABS: Hematocrit 36.6 % (42.0-52.0); Hemoglobin 11.9 g/dL (11.7-16.6); Lymphocytes # 0.6 10^3/uL (0.8-4.8); Lymphocytes % 18.2 %; Mean Corpuscular HGB Conc 32.5 g/dL (30.0-36.0); Mean Corpuscular Volume 89.3 fl (80-94); Mean Platelet Volume 11.2 fL (7.4-10.4); Monocytes # 0.4 10^3/uL (0.2-0.9); Neutrophils # 2.24 10^3/uL (1.8-7.7); Neutrophils % 69.2 %; Nucleated Red Blood Cells % 0 %; Platelet Count 76 10^3/cmm (130-400); White Blood Count 3.2 10^3/uL (4.0-10.0)
[2021-05-01 08:38] LABS: Alanine Aminotransferase 24 U/L (0-41); Albumin Level 3.1 g/dL (3.5-5.2); Alkaline Phosphatase 45 IU/L (40-130); Aspartate Amino Transferase 70 U/L (0-40); Blood Urea Nitrogen 17 mg/dL (8-23); Calcium 7.7 mg/dL (8.5-10.5); Carbon Dioxide 17 mmol/L (22-29); Chloride 92 mmol/L (98-107); Globulin 3.1 g/dL (1.3-4.6); Glucose 80 mg/dL (65-115); Osmolality Calculated 261 mOsm/kg (285-295); Sodium 125 mmol/L (136-145); Total Bilirubin 0.3 mg/dL (0.15-1.2); Total Protein 6.2 g/dL (6.6-8.7)
[2021-05-01 09:11] LABS: Anion Gap 20.4 (5-19); Potassium 4.4 mmol/L (3.5-5.1)
[2021-05-01 09:40] LABS: Creatine Phosphokinase 1435 U/L (39-308)
--- NOTE | 2021-05-01 13:24 | P.PN_ITS ---
Subjective Subjective: Interval history: Panda feels bloated. He is highly concerned about resuming his Lasix. Reports previously was on 80 mg, currently continues taking 20 mg. Discussed with him that he has not been eating well recently, does not have other signs of fluid overload, and concern is in fact for more dehydration given hyponatremia and rhabdomyolysis. Discussed with him we will monitor closely, he is agreeable to hold Lasix for now, resume in case of signs of fluid overload appearing. Vitals/I&O/Wt Last Vital Signs Temp 98.6 F 05/01/21 12:10 Pulse 78 05/01/21 12:10 Resp 18 05/01/21 12:10 BP 114/61 05/01/21 12:10 Pulse Ox 97 05/01/21 12:10 04/30/21 05/01/21 05/01/21 22:59 06:59 14:59 Intake Total 110 / 110 240 / 240 Output Total 200 / 200 400 / 600 Balance -90 / -90 -400 / -490 240 / 240 Weight last 48 hrs Weight 65.771 kg Physical Exam Const: COMMON NORMALS: no acute distress, patient oriented x3 and alert GENERAL APPEARANCE: cooperative ORIENTATION/CONSCIOUSNESS: Yes awake HENMT: COMMON NORMALS: oropharynx normal Neck/C-Spine: COMMON NORMALS: no JVD Resp: COMMON NORMALS: normal respiratory effort and clear to auscultation bilaterally AUSCULTATION: clear to auscultation bilaterally Cardio: COMMON NORMALS: no JVD, regular rhythm, S1 normal heart sound present, S2 normal heart sound present and No murmurs present (Cardio) RHYTHM: regular rhythm HEART SOUNDS: S1 normal heart sound present and S2 normal heart sound present GI: COMMON NORMALS: Normal to inspection, nondistended, normoactive bowel sounds present, Soft to palpation and non-tender PALPATION: Yes Soft to palpation Extremity: COMMON NORMALS: no joint enlargement and no pedal edema Neuro: COMMON NORMALS: patient oriented x3 and moves all extremities SENSORIUM/ORIENTATION: Yes alert Skin: COMMON NORMALS: no rashes or lesions noted GENERAL SKIN EXAM: no rashes or lesions noted Data : 05/01/21 06:55 05/01/21 06:55 Micro: Microbiology 04/30/21 11:46 Urine Culture - Preliminary Urine,Clean Catch 04/30/21 13:40 Blood Culture - Preliminary Blood SPECIMEN COLLECTED 04/30/21 13:40 Blood Culture - Preliminary Blood SPECIMEN COLLECTED A&P Assessment and plan (1) Generalized weakness: Appears stronger today. Sodium is slightly better up to 125, however, worsening CKD, continue rhabdomyolysis. He is concerned about resuming Lasix, however, agreeable to hold for now on discussion that appears he is more dehydrated currently with rhabdomyolysis, no other signs of fluid overload, hyponatremia. Continue regular diet. Recheck sodium. Recheck CK. Hold diuretics for now. Continue to monitor oxygenation also with COVID-19. So far doing well on room air. Multifactorial generalized weakness, difficulty walking recently. With urinary tract infection, a number of metabolic abnormalities including hyponatremia, rhabdomyolysis. Bicytopenia persists, slightly better Status: Acute (2) Cystitis: Preliminary urine culture without growth so far. Continue for now with ceftriaxone. Follow-up urine cultures. Has underlying BPH. Status: Acute (3) Hyponatremia: Mild improvement. Trending in the right direction. Continue as currently. Hold diuretics for now as appears on the dry side, recently with poor oral intake. Regular diet. Recheck sodium. Status: Acute (4) Bicytopenia: Appears new, possibly related to COVID-19. Monitor counts. Status: Acute (5) Rhabdomyolysis: CK up to 1435. Continue to hold diuretics at this time. Recheck level. Recently with poor oral intake, had been staying active, exerting himself raking leaves. Does not appear to be on statin. Status: Acute (6) COVID-19: Due to risk of severe disease in this 86-year-old gentleman with history of nonischemic cardiomyopathy, systolic congestive heart failure unknown amount of other, but it is, monoclonal antibody infusion is administered in ER. Status: Acute (7) BPH loc w urin obs/LUTS: Reports he is running out of Flomax. At discharge, would benefit from a refill. Status: Chronic (8) Non-ischemic cardiomyopathy: Currently does not appear decompensated. Hold furosemide, spironolactone for now given rhabdomyolysis, with poor oral intake recently. Follows with Dr. Webster. Status: Acute (9) Non-rheumatic mitral regurgitation: Status: Acute (10) Dark stools: Check Hemoccult. Hemoglobin down to 11.9. Status: Acute Attestations Medical Necessity Statement*: Continue hospitalization for management of hyponatremia, rhabdomyolysis, with underlying nonischemic cardiomyopathy, risk of fluid overload gentleman of advanced age and also COVID-19. Coding Level of Care Code Acute Tape Edge Machine Operator for Chg Fwd Diagnoses Generalized weakness R53.1 Cystitis N30.90 Hyponatremia E87.1 Bicytopenia D75.89 Rhabdomyolysis M62.82 COVID-19 U07.1 BPH loc w urin obs/LUTS N40.1 Non-ischemic cardiomyopathy I42.8 Non-rheumatic mitral regurgitation I34.0 Dark stools R19.5
[2021-05-01] MEDS: cefTRIAXone 1,000 MG in sodium chloride 0.9% (plus) 50 ML 100 MG IV (14:23)
[2021-05-01 16:22] LABS: Quest SARS-CoV-2 RNA DETECTED (NOT DETECTED)
[2021-05-01] MEDS: tamsulosin 0.4 mg Capsule PO (17:09)
[2021-05-02 04:00] VITALS: BP 124/77; PULSE 81; RESP 16; TEMP 37.1; O2SAT 97
[2021-05-02] MEDS: pantoprazole DR 40 mg Tablet PO (06:07)
[2021-05-02] MEDS: isosorbide mononitrate ER 30 mg Tablet PO (06:07)
[2021-05-02] MEDS: acetaminophen 325 mg Tablet 650 MG PO (06:07)
[2021-05-02] MEDS: aspirin 81 mg EC Tablet PO (06:07)
[2021-05-02 07:03] LABS: Basophils % 0.5 %; Hematocrit 37.7 % (42.0-52.0); Hemoglobin 12.6 g/dL (11.7-16.6); Lymphocytes # 0.8 10^3/uL (0.8-4.8); Lymphocytes % 36.6 %; Mean Corpuscular HGB Conc 33.4 g/dL (30.0-36.0); Mean Corpuscular Hemoglobin 28.6 pg (28.0-34.0); Mean Corpuscular Volume 85.5 fl (80-94); Mean Platelet Volume 11.6 fL (7.4-10.4); Monocytes # 0.3 10^3/uL (0.2-0.9); Monocytes % 14.4 %; Neutrophils # 1.04 10^3/uL (1.8-7.7); Nucleated Red Blood Cells % 0 %; Platelet Count 79 10^3/cmm (130-400); Red Blood Count 4.41 10^6/uL (4.1-5.3); Red Cell Distribution Width 12.8 % (12.1-15.1); White Blood Count 2.2 10^3/uL (4.0-10.0)
[2021-05-02 07:17] VITALS: BP 125/54; PULSE 76; RESP 17; TEMP 37.2; O2SAT 97
[2021-05-02 07:37] LABS: Alanine Aminotransferase 27 U/L (0-41); Albumin Level 3.1 g/dL (3.5-5.2); Alkaline Phosphatase 47 IU/L (40-130); Anion Gap 14.2 (5-19); Aspartate Amino Transferase 68 U/L (0-40); Blood Urea Nitrogen 16 mg/dL (8-23); Calcium 7.9 mg/dL (8.5-10.5); Carbon Dioxide 22 mmol/L (22-29); Chloride 98 mmol/L (98-107); Globulin 3.2 g/dL (1.3-4.6); Glucose 99 mg/dL (65-115); Osmolality Calculated 271 mOsm/kg (285-295); Potassium 4.2 mmol/L (3.5-5.1); Sodium 130 mmol/L (136-145); Total Bilirubin 0.2 mg/dL (0.15-1.2); Total Protein 6.3 g/dL (6.6-8.7)
[2021-05-02 07:46] LABS: Creatine Phosphokinase 1109 U/L (39-308)
[2021-05-02 08:32] VITALS: BP 113/61; PULSE 65; RESP 18; TEMP 37.1; O2SAT 97
[2021-05-02] MEDS: cefTRIAXone 1,000 MG in sodium chloride 0.9% (plus) 50 ML 100 MG IV (11:49)
[2021-05-02 12:47] VITALS: BP 142/69; PULSE 78; RESP 16; TEMP 36.9; O2SAT 98
[2021-05-02] MEDS: cefdinir 300 MG CAPSULE PO (13:21)
[2021-05-02 14:05] VITALS: BP 142/69; PULSE 78; RESP 16; TEMP 36.9; O2SAT 98
--- NOTE | 2021-05-02 20:14 | PM.DCS ---
Discharge Providers Date of Admission: 04/30/21 14:23 Date of Discharge: May 02, 2021 Attending Provider at Admission: Lex Aden Attending Provider at Discharge: Lex Aden Primary Care Provider: Melinda Mcclain MD Diagnoses at Discharge Discharge Diagnosis (1) Generalized weakness: Status: Acute (2) Cystitis: Status: Acute (3) Hyponatremia: Status: Acute (4) Bicytopenia: Status: Acute (5) Rhabdomyolysis: Status: Acute (6) COVID-19: Status: Acute (7) BPH loc w urin obs/LUTS: Status: Chronic (8) Non-ischemic cardiomyopathy: Status: Acute (9) Non-rheumatic mitral regurgitation: Status: Acute (10) Dark stools: Status: Acute Reason for Visit Reason for Visit: FATIGUED X 5 DAYS: STATES HAS OVERDONE IT Brief History: Pleasant 86-year-old gentleman with history of nonischemic cardiomyopathy, history of systolic CHF, HTN, mitral regurgitation, ventricular arrhythmia, BPH has not been feeling well for about 5 days. 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 After one of the sessions felt very cold. Legs have been feeling heavy. Fatigued. Took activated charcoal. Did not notice any improvement in symptoms. Having black stools. But says was already having black stools prior to taking the charcoal. Says his brought him to ER. In ER with noted number of metabolic abnormalities, with leukopenia 2000, neutropenia, ANC 1070, thrombocytopenia, platelets 74,000, ABG 7.53/24.8/85.6, sodium 123, carbon dioxide 18, anion gap 19.5, BUN 18, creatinine 1.2, T bili 0.4, AST 64, ALT 23, alk phos 50, rhabdomyolysis with CK 1396. UA with 1+ ketones, 2+ blood, 2+ leukocyte esterase, 0-4 RBC, more than 100 WBC, 0-4 SECs, 2+ yeast. Trace bacteria. COVID-19 positive. Reports has not been eating well recently. No headache, no fever or chills, no nausea vomiting, no diarrhea, although suspect the charcoal cleaned him out . Hospital Course Hospital Course Admitted and treated for generalized weakness, with noted multiple metabolic abnormalities on presentation, hyponatremia, sodium down to 120, rhabdomyolysis, bicytopenia, and tested positive for COVID-19. Nonsevere illness at presentation, however, at risk of severe illness, and so received medical antibody treatment. Reports has not been eating well recently. Continue taking diuretics including furosemide, spironolactone, then later drank a bunch of water because felt he was getting dehydrated. Diuretics were held as he was appearing on the dry side, no JVD, no crackles, no other signs of fluid overload. Discussed with him diuretics to be held temporarily and to be resumed for ischemic cardiomyopathy after additional 3 days. Rhabdomyolysis gradually improving. Hyponatremia gradually improving while on regular diet in the hospital. At presentation with noted possible cystitis, treated with ceftriaxone while in the hospital, no growth on urine cultures. Complete short course of antibiotic with cefdinir. While in the hospital not requiring any oxygen, ambulating in the room. Today feeling much better, requesting to return home. Please follow-up on his recovery. Follow-up on volume status, adjust diuretics as appropriate. Follow-up on bicytopenia (at discharge ANC 1004, platelets 79,000) and rhabdomyolysis. Follow-up sodium levels. Hemoccult while in the hospital requested, but uncollected. Please revisit complaints of melanotic stools. Hemoglobin remained steady in the hospital. Physical Exam Const: COMMON NORMALS: no acute distress, patient oriented x3 and alert GENERAL APPEARANCE: cooperative ORIENTATION/CONSCIOUSNESS: Yes awake OTHER: [place] HENMT: COMMON NORMALS: oropharynx normal Neck/C-Spine: COMMON NORMALS: no JVD Resp: COMMON NORMALS: normal respiratory effort and clear to auscultation bilaterally AUSCULTATION: clear to auscultation bilaterally Cardio: COMMON NORMALS: no JVD, regular rhythm, S1 normal heart sound present, S2 normal heart sound present and No murmurs present (Cardio) RHYTHM: regular rhythm HEART SOUNDS: S1 normal heart sound present and S2 normal heart sound present GI: COMMON NORMALS: Normal to inspection, nondistended, normoactive bowel sounds present, Soft to palpation and non-tender PALPATION: Yes Soft to palpation Extremity: COMMON NORMALS: no joint enlargement and no pedal edema Neuro: COMMON NORMALS: patient oriented x3 and moves all extremities SENSORIUM/ORIENTATION: Yes alert Skin: COMMON NORMALS: no rashes or lesions noted GENERAL SKIN EXAM: no rashes or lesions noted Discharge Data Data Completed and Pending: Completed Studies During Hospitalization Category Date Time Status CT head wo con* 7 0450 Stat Cat Scan 04/30/21 10:44 Completed XR chest 1V jeremiah ble [id number] Stat Exams 04/30/21 10:44 Completed Pending at discharge Category Date Time Status Blood Culture Sta t Lab 04/30/21 13:40 Results Labs from last 24 hours 05/02/21 05/02/21 06:35 06:35 WBC 2.2 L RBC 4.41 Hgb 12.6 Hct 37.7 L MCV 85.5 MCH 28.6 MCHC 33.4 RDW 12.8 Plt Count 79 L MPV 11.6 H Neut % (Auto) 48.0 Lymph % (Auto) 36.6 [place] % (Auto) 14.4 Eos % (Auto) 0.0 Baso % (Auto) 0.5 Neut # (Auto) 1.04 L Lymph # (Auto) 0.8 [place] # (Auto) 0.3 Eos # (Auto) 0.0 Baso # (Auto) 0.0 Nucleated RBC % (a uto) 0 Nucleated RBCs # 0.0 Sodium 130 L Potassium 4.2 Chloride 98 Carbon Dioxide 22 Anion Gap 14.2 BUN 16 Creatinine 1.1 GFR Calculation Not Reportable Glucose 99 Calculated Osmolal ity 271 L Calcium 7.9 L Total Bilirubin 0.2 AST 68 H ALT 27 Alkaline Phosphata se 47 Creatine Kinase 1109 H* Total Protein 6.3 L Albumin 3.1 L Globulin 3.2 Vitals: Last Vital Signs Temp 98.5 F 05/02/21 14:05 Pulse 78 05/02/21 14:05 Resp 16 05/02/21 14:05 BP 142/69 05/02/21 14:05 Pulse Ox 98 05/02/21 14:05 Discharge Plan Discharge Patient Disposition: Home Condition: Stable Prescriptions: New cefdinir 300 mg capsule 300 mg PO BID 3 Days Qty: 6 RF: 0 Continued omeprazole 20 mg capsule,delayed release(DR/EC) 20 mg PO DAILY@0600 RF: 0 aspirin [Adult Low Dose Aspirin] 81 mg tablet,delayed release (DR/EC) 81 mg PO DAILY@0600 RF: 0 cholecalciferol (vitamin D3) [Vitamin D3] 25 mcg (1,000 unit) Tablet 25 mcg PO DAILY@0600 RF: 0 isosorbide mononitrate 30 mg tablet extended release 24 hr 30 mg PO DAILY@0600 RF: 0 sacubitril-valsartan 97-103 mg tablet 1 tab PO BID@0600,1800 RF: 0 metoprolol succinate 100 mg Tablet Extended Release 24 Hr 50 mg PO DAILY RF: 0 tamsulosin 0.4 mg capsule 0.4 mg PO QPM RF: 0 Held spironolactone 25 mg tablet 12.5 mg PO DAILY RF: 0 Hold Instructions: Resume on 05/06/21. furosemide 20 mg tablet 20 mg PO QAM Qty: 90 RF: 3 Hold Instructions: Resume on 05/06/21. potassium chloride 8 mEq tablet extended release 4 meq PO EVERY OTHER DAY PRN (Reason: rx written on 12/08/20 8meq daily-see byron roque) RF: 0 Hold Instructions: Resume on 05/06/21. Discharge Orders: Discharge Order (Routine); Ordered 05/02/21 Ordered By: Lex Aden Referrals: Melinda Mcclain MD [Primary Care Provider] - 1 week (Please contact their office on Monday to schedule an appointment) Sandi Okeefe FNP [Nurse Practitioner] - 2 weeks (CHF. Follow up after diuretics held due to rhabdo, covid, dehydration, overexertion. Please contact their office on Monday to schedule an appointment) Discharge Diet: Advance as tolerated Discharge Activity: Increase activity as tolerated Patient Instructions: Cefdinir (By mouth), Hyponatremia (GEN), Rhabdomyolysis (GEN), Neutropenia (GEN), Thrombocytopenia (GEN), Droplet Precautions (GEN), Melena (GEN), COVID-19 (Coronavirus Disease 2019) (GEN) Activity Restrictions/Additional Instructions: Continue isolation precautions until 05/10 so you do not spread COVID-19 to other people. Consider COVID-19 vaccination. In case you experience severe shortness of breath, chest pain or pressure, fainting, extreme fatigue, or any other concerning symptoms, please seek medical attention immediately. Please note that hopefully you will continue to improve from COVID-19, although some people experience additional worsening of symptoms about 10 days to 2 weeks into their illness. Please be vigilant and if you start getting worse, please seek medical attention. Please note that you had some muscle breakdown-likely due to combination of overexertion, COVID-19, and with poor oral intake, possibly dehydration. Your diuretics have been held for now. Please hold for additional 3 days, subsequently resume, or resume sooner if you are starting to notice more shortness of breath lying down flat, with exertion, abdominal swelling or swelling elsewhere. Please follow-up with your primary doctor and your fix[facility] room. Please have them reassess your muscle enzyme CK, kidney function, and volume status to make any additional adjustments to your diuretics. Your sodium level has been low. Again possibly due to overexertion, loss of sodium, inadequate oral intake, increased water intake. Diuretics. Please maintain regular diet. Do not add sodium on purpose, but do not limited either for now. Please have your primary care doctor and [facility] room reassess your sodium level at next visits. Please also discuss with your primary doctor regarding low white blood cell level, neutrophils 1004, as well as low platelets level 79,000. These are likely caused by COVID-19 virus which suppresses bone marrow sometimes, however, please have your primary doctor recheck your levels to make sure they are improving as you are recovering from the infection. In case you are not improving, additional investigation may be needed as well. Please note that low platelet levels can increase your risk of bleeding. Avoid any activities that may lead to injury, bleeding. In case you notice bleeding, stop aspirin, if bleeding persists, seek medical attention. Please note you had described dark stools as well. We were not able to obtain a sample while you are in the hospital. Please discuss with your primary doctor to follow-up with a stool sample to check for blood in stool. Please discuss also arrangement for assessment by gastroscopy and colonoscopy once you recover from acute infection. Continue omeprazole. Discharge Attestations Time Spent in Discharge Care*: greater than 30 min Quality Metrics Clinical Quality Measures During this hospital stay, did patient experience: None Coding Level of Care Code Acute g [facility] note Diagnoses Generalized weakness R53.1 Cystitis N30.90 Hyponatremia E87.1 Bicytopenia D75.89 Rhabdomyolysis M62.82 COVID-19 U07.1 BPH loc w urin obs/LUTS N40.1 Non-ischemic cardiomyopathy I42.8 Non-rheumatic mitral regurgitation I34.0 Dark stools R19.5
== END 2021-05-02 14:07 | disposition home or self-care (01) ==
LOC: ER 15:34 → MEDSURG 16:51
PROVIDERS: Admitting Provider Internal Medicine; Emergency Provider Family Medicine; PCP Family Medicine; Visit Provider Internal Medicine
DX: U07.1 COVID-19 (principal); R53.1 Weakness; N30.90 Cystitis, unspecified without hematuria; E87.1 Hypo-osmolality and hyponatremia; D75.89 Other specified diseases of blood and blood-forming organs; M62.82 Rhabdomyolysis; N40.1 Benign prostatic hyperplasia with lower urinary tract symptoms; I42.8 Other cardiomyopathies; I34.0 Nonrheumatic mitral (valve) insufficiency; R19.5 Other fecal abnormalities; Z79.82 Long term (current) use of aspirin
CPT/HCPCS: 36415; 36600; 70450; 71045; 80051; 80053; 81001; 82330; 82550; 82805; 85025; 87040; 87086; 87426; 87635; 93005; 96365; 96367; 99285; G0378; J0696

== ENCOUNTER 2021-05-03 16:10 | Emergency (ER) | payer OTHER, MEDICARE, SELFPAY ==
[2021-05-03 16:15] VITALS: BP 137/81; PULSE 88; RESP 14; O2SAT 100; BMI 23.3
--- NOTE | 2021-05-03 16:30 | XRR_ITS ---
PROCEDURE INFORMATION: Exam: XR Chest Exam date and time: 05/03/2021 4:30 PM Age: 86 years old Clinical indication: Dyspnea TECHNIQUE: Imaging protocol: XR of the chest. Views: 1 view. COMPARISON: CR XR chest 1V portable [id number] 04/30/2021 11:02 AM FINDINGS: Lungs: Unremarkable. No consolidation. Pleural spaces: Unremarkable. No pleural effusion. No pneumothorax. Heart/Mediastinum: Unremarkable. No cardiomegaly. Bones/joints: Unremarkable. XR/XR chest 1V portable [id number] IMPRESSION: No acute findings. Radiation Dose CTDIVOL = (mGy): DLP = (mGy-cm)
--- NOTE | 2021-05-03 16:30 | ECG_ITS ---
[facility] Test Date: 2021-05-03 Pat Name: Manny Melendez Department: Room: Gender: Male Orthopedics Pediatric Physician: : [id number] Requested By: Ethan Irby Order Number: [id number] Edward MD: Katya Richards M.D. Measurements Intervals [place] Rate: 66 P: 7 AK: 126 QRS: -26 QRSD: 141 T: 28 QT: 422 QTc: 443 Interpretive Statements SINUS RHYTHM WITH OCCASIONAL VENTRICULAR PREMATURE COMPLEXES BORDERLINE LEFT AXIS DEVIATION [QRS AXIS < -20] RIGHT BUNDLE BRANCH BLOCK [120+ ms QRS DURATION, UPRIGHT V1, 40+ ms S IN I/aVL/V4/V5/V6] Compared to ECG 04/30/2021 11:37:19 Right bundle-branch block now present Intraventricular conduction delay no longer present Electronically Signed On 05-04-2021 17:58:23 CONCRETE PAVING MACHINE OPERATOR by Katya Richards M.D. [id number]
--- NOTE | 2021-05-03 16:42 | ED_ITS ---
HPI - SOB/Dyspnea General: Chief Complaint: Shortness of Breath/Dyspnea Stated Complaint: RESP DISTRESS Time Seen by Provider: 05/03/21 16:16 History of Present Illness: HPI Narrative: 86-year-old malePresents emergency room complaining of weakness and shortness of breath. He was hospitalized over the weekend admitted on 1126 and discharged home yesterday. Patient had hyponatremia cystitis. In addition this patient tested positive on 04/30/2021 for Covid by antigen as well as PCR. And did not demonstrate any significant worsening was discharged home on cefdinir yesterday. He comes back today complaining of continuing to be short of breath. MD elicited complaint: shortness of breath and cough Pertinent past history: congestive heart failure Onset (ago): day(s) Context: occurred during exertion Timing: intermittent Severity: moderate Exacerbating factors: exertion, movement and other (supine) Relieving factors: oxygen and rest Known history of: congestive heart failure Associated symptoms: Reports orthopnea; Deny abdominal pain, chest congestion, chest pain, cough, diaphoresis, dizziness, extremity pain, fever(s), hemoptysis, lightheadedness, myalgias, nausea, palpitations, paresthesias, polydipsia, polyuria, rash, sense of impending doom, syncope or vomiting Treatment prior to arrival: none Review of Systems Const: Denies: fever(s) or diaphoresis ENMT: Denies: throat pain, ear or mastoid pain, nasal discharge or nasal congestion Card: Reports: orthopnea; Denies: chest pain, palpitations, lightheadedness or syncope Resp: Denies: hemoptysis or chest congestion GI: Denies: abdominal pain, nausea or vomiting : Denies: flank pain, dysuria, urinary frequency or urinary urgency Musc: Denies: extremity pain Skin/Breast: Denies: rash or pruritus Neuro: Denies: dizziness Endo: Denies: polyuria or polydipsia PFSH ED PFSH: Medical History Acute urinary retention Benign essential HTN Bilateral hydronephrosis BPH loc w urin obs/LUTS Chronic systolic heart failure Ischemic cardiomyopathy Non-ischemic cardiomyopathy Non-rheumatic mitral regurgitation Ventricular arrhythmia Surgical History History of tonsillectomy and adenoidectomy Family History Sister CAD (coronary artery disease) Brother CAD (coronary artery disease) Cancer Lung disease Father , at age 84 Neuropathy Mother , at age 93 No problems noted. Denies family history of Diabetes Clotting disorder Dementia Hyperlipidemia Chronic kidney disease (CKD) Suicide Anesthesia complication Bleeding disorder Hypertension Stroke Social History Smoking and tobacco status: never smoked Alcohol intake: never Household members: spouse Marital status: Current occupational status: retired History of recent travel: No Physical Exam Const: COMMON NORMALS: no acute distress GENERAL APPEARANCE: cooperative and comfortable ORIENTATION/CONSCIOUSNESS: Yes awake, Yes oriented to person, Yes oriented to place and Yes oriented to time HENMT: COMMON NORMALS: normocephalic, atraumatic and hearing grossly normal bilaterally HEAD & SCALP: normocephalic and atraumatic Neck/C-Spine: COMMON NORMALS: no JVD Resp: COMMON NORMALS: normal respiratory effort, No retractions, No use of accessory muscles and clear to auscultation bilaterally AUSCULTATION: clear to auscultation bilaterally Cardio: COMMON NORMALS: no JVD, regular rate, regular rhythm and No murmurs present (Cardio) RATE: regular rate RHYTHM: regular rhythm GI: COMMON NORMALS: Soft to palpation and No hepatosplenomegaly present AUSCULTATION: Yes normoactive bowel sounds PALPATION: Yes Soft to palpation, No Tenderness to palpation present (GI), No Guarding due to palpation present (GI) and Yes No hepatosplenomegaly present Extremity: COMMON NORMALS: normal to inspection, capillary refill normal, no clubbing, cyanosis or edema, no calf tenderness and no pedal edema Neuro: SENSORIUM/ORIENTATION: Yes oriented to person, Yes oriented to place and Yes oriented to time Skin: COMMON NORMALS: no rashes or lesions noted GENERAL SKIN EXAM: no rashes or lesions noted Course Vital Signs: Vital signs: Vital Signs Temperature 97.9 F 05/03/21 17:48 Pulse Rate 72 05/03/21 19:29 Respiratory Rate 18 05/03/21 19:29 Blood Pressure 126/72 05/03/21 17:48 Pulse Oximetry 98 05/03/21 19:29 MDM - SOB/Dyspnea MDM Narrative: Medical decision making narrative: Reviewed findings with the patient. Patient is stable chest x-ray is normal sats are good on room air he does indeed have COVID-19 but this point is weathering it well there is no real interventions.He was hospitalized so is not a candidate for monoclonal antibodies. We will discharge him home and follow-up with his primary care doc continue to monitor home O2 sats. Lab Data: Labs: Lab Results 05/03/21 05/03/21 05/03/21 17:08 17:08 17:08 WBC 3.1 10^3/uL L 10^ 3/uL (4.0-10.0) RBC 4.20 10^6/uL 10^6 /uL (4.1-5.3) Hgb 11.9 g/dL g/dL (11.7-16.6) Hct 36.4 % L % (42.0-52.0) MCV 86.7 fl fl (80-94) MCH 28.3 pg pg (28.0-34.0) MCHC 32.7 g/dL g/dL (30.0-36.0) RDW 12.9 % % (12.1-15.1) Plt Count 120 10^3/cmm L 10 ^3/cmm (130-400) MPV 11.1 fL H fL (7.4-10.4) Neut % (Auto) 68.9 % % Lymph % (Auto) 18.2 % % [place] % (Auto) 12.0 % % Eos % (Auto) 0.3 % % Baso % (Auto) 0.3 % % Neut # (Auto) 2.12 10^3/uL 10^3 /uL (1.8-7.7) Lymph # (Auto) 0.6 10^3/uL L 10^ 3/uL (0.8-4.8) [place] # (Auto) 0.4 10^3/uL 10^3/ uL (0.2-0.9) Eos # (Auto) 0.0 10^3/uL 10^3/ uL (0.0-0.8) Baso # (Auto) 0.0 10^3/uL 10^3/ uL (0.0-0.1) Nucleated RBC % (a uto) 0 % % Nucleated RBCs # 0.0 /100WBC /100W BC Sodium 135 mmol/L L mmol /L (136-145) Potassium 4.4 mmol/L mmol/L (3.5-5.1) Chloride 102 mmol/L mmol/L (98-107) Carbon Dioxide 23 mmol/L mmol/L (22-29) Anion Gap 14.4 (5-19) BUN 14 mg/dL mg/dL (8-23) Creatinine 1.1 mg/dL mg/dL (0.7-1.2) GFR Calculation Not Reportable Glucose 97 mg/dL mg/dL (65-115) Calculated Osmolal ity 280 mOsm/kg L mOs m/kg (285-295) Calcium 8.1 mg/dL L mg/dL (8.5-10.5) Total Bilirubin 0.3 mg/dL mg/dL (0.15-1.2) AST 59 U/L H U/L (0-40) ALT 32 U/L U/L (0-41) Alkaline Phosphata se 49 IU/L IU/L (40-130) Troponin T Baselin e 25 ng/L H ng/L (0-15) NT-Pro-B Natriuret Pep 956 pg/mL H pg/mL (0-450) Total Protein 6.3 g/dL L g/dL (6.6-8.7) Albumin 3.6 g/dL g/dL (3.5-5.2) Globulin 2.7 g/dL g/dL (1.3-4.6) Discharge Plan Discharge Patient Disposition: Home Clinical Impression: COVID-19 Condition: Stable Prescriptions: No Action omeprazole 20 mg capsule,delayed release(DR/EC) 20 mg PO DAILY@0600 RF: 0 aspirin [Adult Low Dose Aspirin] 81 mg tablet,delayed release (DR/EC) 81 mg PO DAILY@0600 RF: 0 spironolactone 25 mg tablet 12.5 mg PO DAILY RF: 0 Hold Instructions: Resume on 05/06/21. furosemide 20 mg tablet 20 mg PO QAM Qty: 90 RF: 3 Hold Instructions: Resume on 05/06/21. cholecalciferol (vitamin D3) [Vitamin D3] 25 mcg (1,000 unit) Tablet 25 mcg PO DAILY@0600 RF: 0 isosorbide mononitrate 30 mg tablet extended release 24 hr 30 mg PO DAILY@0600 RF: 0 sacubitril-valsartan 97-103 mg tablet 1 tab PO BID@0600,1800 RF: 0 metoprolol succinate 100 mg Tablet Extended Release 24 Hr 50 mg PO DAILY RF: 0 potassium chloride 8 mEq tablet extended release 4 meq PO EVERY OTHER DAY PRN (Reason: rx written on 12/08/20 8meq daily-see byron roque) RF: 0 Hold Instructions: Resume on 05/06/21. tamsulosin 0.4 mg capsule 0.4 mg PO QPM RF: 0 Discharge Orders: Discharge ED (Routine); Ordered 05/03/21 Ordered By: Rubio Gunn Referrals: Melinda Mcclain MD [Primary Care Provider] - Discharge Diet: Usual diet Discharge Activity: Increase activity as tolerated Patient Instructions: Opioid Safety Activity Restrictions/Additional Instructions: Follow-up with your primary care doctor within the week. Monitor home oxygen sats return if blood falls below 90 while at rest Coding Level of Care Code ED Communication Lecturer for Chg Fwd Exam Comprehensive
[2021-05-03 17:19] LABS: Basophils % 0.3 %; Eosinophils % 0.3 %; Hematocrit 36.4 % (42.0-52.0); Hemoglobin 11.9 g/dL (11.7-16.6); Lymphocytes # 0.6 10^3/uL (0.8-4.8); Lymphocytes % 18.2 %; Mean Corpuscular HGB Conc 32.7 g/dL (30.0-36.0); Mean Corpuscular Hemoglobin 28.3 pg (28.0-34.0); Mean Corpuscular Volume 86.7 fl (80-94); Mean Platelet Volume 11.1 fL (7.4-10.4); Monocytes # 0.4 10^3/uL (0.2-0.9); Neutrophils # 2.12 10^3/uL (1.8-7.7); Neutrophils % 68.9 %; Nucleated Red Blood Cells % 0 %; Platelet Count 120 10^3/cmm (130-400); Red Cell Distribution Width 12.9 % (12.1-15.1); White Blood Count 3.1 10^3/uL (4.0-10.0)
[2021-05-03 17:48] VITALS: BP 126/72; PULSE 77; RESP 18; TEMP 36.6; O2SAT 96
[2021-05-03 17:54] LABS: Troponin(5th) Baseline 25 ng/L (0-15)
[2021-05-03 17:59] LABS: Alanine Aminotransferase 32 U/L (0-41); Albumin Level 3.6 g/dL (3.5-5.2); Alkaline Phosphatase 49 IU/L (40-130); Anion Gap 14.4 (5-19); Aspartate Amino Transferase 59 U/L (0-40); Blood Urea Nitrogen 14 mg/dL (8-23); Calcium 8.1 mg/dL (8.5-10.5); Carbon Dioxide 23 mmol/L (22-29); Chloride 102 mmol/L (98-107); Globulin 2.7 g/dL (1.3-4.6); Glucose 97 mg/dL (65-115); NT Pro B Type Natriuretic Pept 956 pg/mL (0-450); Osmolality Calculated 280 mOsm/kg (285-295); Potassium 4.4 mmol/L (3.5-5.1); Sodium 135 mmol/L (136-145); Total Bilirubin 0.3 mg/dL (0.15-1.2); Total Protein 6.3 g/dL (6.6-8.7)
--- NOTE | 2021-05-03 18:30 | ECG_ITS ---
[facility] Test Date: 2021-05-03 Pat Name: Manny Melendez Department: Room: Gender: Male Uniform Cap Operator: : 1935 Requested By: Ethan Irby Order Number: [id number] Reading MD: Katya Richards M.D. Measurements Intervals [place] Rate: 67 P: -3 SD: 136 QRS: -30 QRSD: 141 T: 29 QT: 415 QTc: 439 Interpretive Statements SINUS RHYTHM WITH OCCASIONAL ECTOPIC PREMATURE COMPLEXES BORDERLINE LEFT AXIS DEVIATION [QRS AXIS < -20] RIGHT BUNDLE BRANCH BLOCK [120+ ms QRS DURATION, UPRIGHT V1, 40+ ms S IN I/aVL/V4/V5/V6] Compared to ECG 05/03/2021 17:18:09 Ventricular premature complex(es) no longer present Electronically Signed On 05-04-2021 18:01:49 VASCULAR NEUROLOGIST by Katya Richards M.D. [id number]
[2021-05-03 19:29] VITALS: PULSE 72; RESP 18; O2SAT 98
== END 2021-05-03 19:30 | disposition home or self-care (01) ==
PROVIDERS: Emergency Medicine; Emergency Provider Family Medicine; PCP Family Medicine
DX: U07.1 COVID-19 (principal); Z79.82 Long term (current) use of aspirin
CPT/HCPCS: 71045; 80048; 80053; 83880; 84484; 85025; 93005; 99283

== ENCOUNTER → 2021-06-08 11:20 | Outpatient (BNVA) | payer OTHER, SELFPAY | PROVIDERS: PCP Family Medicine; Visit Provider Internal Medicine Cardiovascular Disease | DX: I50.33 Acute on chronic diastolic (congestive) heart failure (principal); M79.89 Other specified soft tissue disorders; R06.02 Shortness of breath | CPT/HCPCS: 80048; 83880 ==

== ENCOUNTER → 2021-06-24 16:43 | Outpatient (BNVA) | payer OTHER, SELFPAY | PROVIDERS: PCP Family Medicine; Visit Provider Urology | DX: R33.8 Other retention of urine (principal); R30.0 Dysuria | CPT/HCPCS: 81003; 87086 ==

== ENCOUNTER → 2021-07-01 08:41 | Outpatient (BNVA) | payer OTHER, SELFPAY | PROVIDERS: PCP Family Medicine; Visit Provider Internal Medicine Cardiovascular Disease | DX: I25.5 Ischemic cardiomyopathy (principal); M79.89 Other specified soft tissue disorders; E87.1 Hypo-osmolality and hyponatremia; I50.22 Chronic systolic (congestive) heart failure | CPT/HCPCS: 80048; 83880 ==

== ENCOUNTER → 2021-12-09 09:12 | Outpatient (BNVA) | payer OTHER, SELFPAY | PROVIDERS: PCP Family Medicine; Visit Provider Internal Medicine Cardiovascular Disease | DX: I25.5 Ischemic cardiomyopathy (principal); I11.0 Hypertensive heart disease with heart failure; I50.22 Chronic systolic (congestive) heart failure; I49.8 Other specified cardiac arrhythmias | CPT/HCPCS: 36415; 80048; 83880; 99214 ==

== ENCOUNTER 2022-01-17 10:04 | Outpatient (CLI) | payer OTHER, SELFPAY ==
[2022-01-17 11:07] LABS: Anion Gap 14.4 (5-19); Blood Urea Nitrogen 24 mg/dL (8-23); Calcium 8.8 mg/dL (8.5-10.5); Carbon Dioxide 28 mmol/L (22-29); Chloride 103 mmol/L (98-107); Glucose 105 mg/dL (65-115); Osmolality Calculated 296 mOsm/kg (285-295); Potassium 4.4 mmol/L (3.5-5.1); Sodium 141 mmol/L (136-145)
== END 2022-01-17 10:05 | disposition home or self-care (01) ==
LOC: LAB 10:07
PROVIDERS: Internal Medicine Cardiovascular Disease; PCP Family Medicine; Visit Provider Family Medicine
DX: I25.5 Ischemic cardiomyopathy (principal); I49.9 Cardiac arrhythmia, unspecified; I50.22 Chronic systolic (congestive) heart failure; M79.89 Other specified soft tissue disorders; N13.30 Unspecified hydronephrosis
CPT/HCPCS: 36415; 80048

== ENCOUNTER → 2022-02-17 17:00 | Outpatient (BNVA) | payer OTHER, SELFPAY | PROVIDERS: PCP Family Medicine; Visit Provider Nurse Practitioner Family | DX: N40.1 Benign prostatic hyperplasia with lower urinary tract symptoms (principal); Z87.440 Personal history of urinary (tract) infections; N30.90 Cystitis, unspecified without hematuria | CPT/HCPCS: 51741; 51798; 87077; 87086; 87186; 99213 ==

== ENCOUNTER → 2022-03-03 12:00 | Outpatient (BNVA) | payer OTHER, SELFPAY | PROVIDERS: PCP Family Medicine; Visit Provider Nurse Practitioner Family | DX: N40.1 Benign prostatic hyperplasia with lower urinary tract symptoms (principal); Z87.440 Personal history of urinary (tract) infections; N30.90 Cystitis, unspecified without hematuria | CPT/HCPCS: 81003 ==

== ENCOUNTER → 2022-03-31 15:17 | Outpatient (BNVA) | payer OTHER, SELFPAY | PROVIDERS: PCP Family Medicine; Visit Provider Urology | DX: N30.90 Cystitis, unspecified without hematuria (principal); R33.9 Retention of urine, unspecified; N40.1 Benign prostatic hyperplasia with lower urinary tract symptoms | CPT/HCPCS: 51741; 51798; 81003; 99213 ==

== ENCOUNTER → 2022-06-16 09:14 | Outpatient (BNVA) | payer OTHER, SELFPAY | PROVIDERS: PCP Family Medicine; Visit Provider Internal Medicine Cardiovascular Disease | DX: I25.5 Ischemic cardiomyopathy (principal); I11.0 Hypertensive heart disease with heart failure; I50.22 Chronic systolic (congestive) heart failure; I49.8 Other specified cardiac arrhythmias | CPT/HCPCS: 99214 ==

== ENCOUNTER → 2022-06-30 14:59 | Outpatient (BNVA) | payer OTHER, SELFPAY | PROVIDERS: PCP Family Medicine; Visit Provider Urology | DX: N30.90 Cystitis, unspecified without hematuria (principal); R33.9 Retention of urine, unspecified | CPT/HCPCS: 99213 ==

== ENCOUNTER → 2022-12-29 10:31 | Outpatient (BNVA) | payer OTHER, SELFPAY | PROVIDERS: PCP Family Medicine; Visit Provider Internal Medicine Cardiovascular Disease | DX: R06.02 Shortness of breath (principal); I50.22 Chronic systolic (congestive) heart failure; I49.9 Cardiac arrhythmia, unspecified; I25.5 Ischemic cardiomyopathy; I10 Essential (primary) hypertension | CPT/HCPCS: 36415; 80048; 83880; 99214 ==

== ENCOUNTER → 2023-10-05 13:04 | Outpatient (BNVA) | payer OTHER, SELFPAY | PROVIDERS: PCP Family Medicine; Visit Provider Internal Medicine Cardiovascular Disease | DX: I13.0 Hypertensive heart and chronic kidney disease with heart failure and stage 1 through stage 4 chronic kidney disease, or unspecified chronic kidney disease (principal); N18.31 Chronic kidney disease, stage 3a; I50.22 Chronic systolic (congestive) heart failure; I42.8 Other cardiomyopathies; I49.8 Other specified cardiac arrhythmias | CPT/HCPCS: 99214 ==

== ENCOUNTER → 2023-11-13 10:25 | Outpatient (BNVA) | payer OTHER, SELFPAY | PROVIDERS: PCP Family Medicine; Visit Provider Specialist | DX: M25.561 Pain in right knee (principal); M25.562 Pain in left knee; M17.11 Unilateral primary osteoarthritis, right knee; Z01.818 Encounter for other preprocedural examination | CPT/HCPCS: 36415; 73560; 73565; 80053; 81001; 85025; 87077; 87086; 87186; 99204 ==

== ENCOUNTER → 2023-11-15 10:16 | Outpatient (BNVA) | payer OTHER, SELFPAY | PROVIDERS: PCP Family Medicine; Referring Provider Family Medicine; Visit Provider Specialist | DX: M75.101 Unspecified rotator cuff tear or rupture of right shoulder, not specified as traumatic; M75.102 Unspecified rotator cuff tear or rupture of left shoulder, not specified as traumatic; M19.211 Secondary osteoarthritis, right shoulder; M19.212 Secondary osteoarthritis, left shoulder | CPT/HCPCS: 73030; 99214 ==

== ENCOUNTER → 2023-11-21 08:26 | Outpatient (BNVA) | payer OTHER, SELFPAY | PROVIDERS: PCP Family Medicine; Visit Provider Family Medicine | DX: Z01.818 Encounter for other preprocedural examination (principal) | CPT/HCPCS: 87086; 93005 ==

== ENCOUNTER 2023-12-01 14:13 | Outpatient (CLI) | payer OTHER, SELFPAY ==
--- NOTE | 2023-12-01 15:00 | CT_ITS ---
WS: [id number] CT LEFT knee, noncontrast HISTORY: M17.12 - Unilateral primary osteoarthritis, left knee TECHNIQUE: Protocol for ANGEL total knee replacement has been obtained. This includes axial imaging th rough the LEFT hip, LEFT knee and LEFT ankle. DLP: 906.81 mGy.cm COMPARISON: Radiograph 11/13/2023 Pelvis: No fractures or destructive bone lesions. Mild sigmoid diverticulosis. LEFT knee: Tricompartment osteoarthritis with joint space narrowing. Greatest in the medial compartme nt. Marginal osteophytes. Moderate size suprapatellar joint effusion. Small 's cyst. LEFT ankle: No destructive process. CT/CT knee LT [facility] [id number] IMPRESSION: CT imaging provided for [facility] robotic total knee replacement.
== END 2023-12-01 14:14 | disposition home or self-care (01) ==
LOC: RAD 14:13
PROVIDERS: PCP Family Medicine; Visit Provider Specialist
DX: M17.12 Unilateral primary osteoarthritis, left knee (principal); M25.762 Osteophyte, left knee; M71.22 Synovial cyst of popliteal space [Baker], left knee; Z01.818 Encounter for other preprocedural examination
CPT/HCPCS: 73700

== ENCOUNTER 2023-12-14 11:09 | Observation (INO) | payer OTHER, MEDICARE, SELFPAY ==
[2023-12-13 11:29] LABS: Add Urine Microscopic? YES; Bacteria Urine 1+ /hpf; Bilirubin Urine Neg (Negative); Blood Urine Neg (Negative); Glucose Urine UA Norm (Normal); Hyaline Casts Urine 0-4 /lpf; Ketones Urine Negative (Negative); Leukocyte Esterase Urine 2+ (Negative); Mucus Urine 1+ /hpf; Nitrate Urine Negative (Negative); Protein Urine Neg (Negative); Squamous Epithelial Cell Urine 0-4 /hpf (0-5); Urine Appearance Slightly Cloudy (CLEAR); Urine Color Yellow (Yellow); Urobilinogen Urine Norm (Negative); WBC Urine 25-40 /hpf (0-5); pH Urine 5 (5-7)
--- NOTE | 2023-12-13 15:49 | SUR.PREOP ---
[id number] Dias's office regarding pt's urine test today, message from Donna from Dr. Dias's office message back stating she looked at urine from today and pt is good to have surgery tomorrow. to be called to give this information about urine result
[2023-12-14] VITALS (12 sets, daily range): BP systolic 90–123; BP diastolic 47–75; PULSE 51–73; RESP 10–19; TEMP 36.3–36.9; O2SAT 94–98; BMI 26.3
--- NOTE | 2023-12-14 07:00 | P.HPUD_ITS ---
Surgery/Procedure H&P Update DATE OF PROCEDURE: December 14, 2023 DATE H&P PERFORMED: 11/21/23 H&P UPDATE INFORMATION: I have reviewed H&P completed within last 30 days, I have examined patient prior to procedure, No changes to prior documentation and H&P is in [facility] EMR on date indicated PLANNED PROCEDURE: Operation Date: 12/14/23 08:05 Proposed Procedures p Alban Robot Total Knee Arthroplasty(Left) - Maria Esther Dias MD Related Problem List Diagnoses (1) Primary osteoarthritis of left knee:
[2023-12-14] MEDS: acetaminophen 1,000 MG/100 ML PIGGYBACK 400 MG IV ×3 (07:02→23:39)
[2023-12-14] MEDS: CELEcoxib 200 mg Capsule 400 MG PO (07:03)
[2023-12-14] MEDS: gabapentin 300 mg Capsule PO (07:04)
[2023-12-14] MEDS: sodium chloride 0.9% 1,000 ML 30 ML IV (07:05)
--- NOTE | 2023-12-14 08:02 | P.ANESASSM_ITS ---
Pre-Anesthetic Assessment Height/Weight: Height 1.68 m Weight 73.936 kg Temp Pulse Resp BP Pulse Ox O2 Del Method 98.3 F 51 L 17 103/58 97 Room Air 12/14/23 06:35 12/14/23 06:35 12/14/23 06:35 12/14/23 06:35 12/14/23 06:35 12/14/23 06:35 Operation Date: 12/14/23 08:05 Proposed Procedures p Alban Robot Total Knee Arthroplasty(Left) - Maria Esther Dias MD Last intake: Intake Last Liquid Date 12/13/23 Last Liquid Time 20:30 Last Solid Date 12/13/23 Last Solid Time 19:00 Social No tobacco Exam alert, oriented x 3, clear to auscultation bilaterally and regular rate & rhythm Airway Submandibular: within normal limits Mallampati: Class I Dentition: false Pulmonary None reported CV/HEM Congestive Heart Failure and Hypertension None reported Hepatic None reported GI None reported Musc/skel Lower Back Pain and None reported Neuropsych None reported Anesthetic Plan ASA status: 3 Anesthesia: Regional (specify below) Other: spinal and adductor block Risk of > 500 ml blood loss (7ml/kg in children): Yes, adequate IV access and fluids planned Medications/Allergies Home Medications Medication Instructions Recorded Confirmed Last Taken Type aspirin 81 mg tablet,delayed 81 mg PO DAILY@0600 07/18/19 12/13/23 12/09/23 History release (Adult Low Dose Aspirin) omeprazole 20 mg capsule,delayed 20 mg PO DAILY@0600 07/18/19 12/13/23 12/14/23 History release cholecalciferol (vitamin D3) 25 25 mcg PO DAILY@0600 05/23/20 12/13/23 12/07/23 History mcg (1,000 unit) tablet (Vitamin D3) ascorbic acid (vitamin C) 1,000 mg 500 mg PO DAILY 06/16/22 12/13/23 12/07/23 History tablet potassium chloride 20 mEq 10 meq (1/2 x 20 mEq) PO DAILY #50 07/04/22 12/13/23 Unknown Rx tablet,extended release tabs sacubitril 97 mg-valsartan 103 mg 1 tab PO BID #180 tabs 03/17/23 12/13/23 12/13/23 Rx tablet (Entresto) furosemide 40 mg tablet 40 mg PO QAM #90 tabs 07/05/23 12/13/23 Unknown Rx metoprolol succinate 100 mg 50 mg (1/2 x 100 mg) PO DAILY #60 08/15/23 12/13/23 12/14/23 Rx tablet,extended release 24 hr tabs isosorbide mononitrate 30 mg 30 mg PO DAILY@0600 #90 tabs 11/23/23 12/13/23 12/14/23 Rx tablet,extended release 24 hr Allergies Allergy/AdvReac Type Severity Reaction Status Date / Time No Known Allergies Allergy Verified 11/21/23 08:13 Current Medications Generic Name Dose Route Start Last Admin Trade Name Freq PRN Reason Stop Dose Admin Sodium Chloride 1,000 mls @ 30 mls/hr 12/14/23 06:15 12/14/23 07:05 Sodium Chloride 0.9% IV 12/15/23 06:14 30 mls/hr .Q24H VAL Administration PFSH Anesthesia Medical History Elevated PSA BPH loc w urin obs/LUTS Bilateral hydronephrosis Acute urinary retention Non-ischemic cardiomyopathy Ischemic cardiomyopathy Benign essential HTN Non-rheumatic mitral regurgitation Ventricular arrhythmia Chronic systolic heart failure Surgical History History of tonsillectomy and adenoidectomy Family History Sister CAD (coronary artery disease) Brother CAD (coronary artery disease) Cancer Lung disease Father , at age 84 Neuropathy Mother , at age 93 No problems noted. Social History Smoking and tobacco/nicotine status: never used tobacco/nicotine Alcohol intake: never Substance/Drug Use: never Household members: spouse Marital status: Current occupational status: retired Data Anesthesia Urine 12/13/23 Range/Units 10:44 Urine Color Yellow (Yellow) Urine Appearance Slightly cloudy (CLEAR) Urine pH 5 (5-7) Ur Specific [place] 1.010 (1.005-1.030) Urine Protein Neg (Negative) Urine Glucose (UA) Norm (Normal) Urine Ketones Negative (Negative) Urine Nitrate Negative (Negative) Urine Bilirubin Neg (Negative) Ur Leukocyte Esterase 2+ H (Negative) Urine RBC 5-10 H (0-2) /hpf Urine WBC 25-40 H (0-5) /hpf Cardiac Studies: Echocardiogram Ultrasound 01/05/21
[2023-12-14] MEDS: ceFAZolin 2,000 MG in sodium chloride 0.9% (plus) 50 ML 100 MG IV (08:11)
--- NOTE | 2023-12-14 08:39 | ANES.PROC ---
Anesthesia Procedures Procedure/Date: 12/14/23 Nerve Block ^: Nerve Block 1: Main Anesthesia: spinal anesthesia block Time Out Performed: Yes Consent: requested by attending/covering physician Nerve block location: adductor canal (left) Anesthesia monitors applied: pulse oximetry, EKG, BP cuff and oxygen Nerve block position: supine Anesthetic Used: ropivicaine 0.5% Amount of anesthesia used (mL): 30 Ultrasound used to: recognize landmarks Nerve Stimulator Used?: No Interscalene/Femoral BLK: 4 stimuplex 21 g needle used for position and inplane approach and visualize local anesthetic spread Injection: neg aspiration of heme Patient Tolerated Procedure: no complications Complications: none
[2023-12-14] MEDS: tranexamic acid 1,000 mg/10mL SDV 1000 MG IV (08:50)
[2023-12-14] MEDS: BUPivacaine liposome 13.3 mg/mL SDV 20 mL 266 MG INFILTRATI (09:17)
[2023-12-14] MEDS: BUPivacaine 0.5% INJ 30 mL 20 ML XX (09:17)
[2023-12-14] MEDS: ceFAZolin 1,000 mg SDV 2000 MG IRRIGATION (09:19)
[2023-12-14] MEDS: vancomycin 1,000 MG SDV 1000 MG XX (09:20)
--- NOTE | 2023-12-14 11:35 | PM.OP ---
Operative Report Date of procedure: December 14, 2023 Pre-op diagnosis: Severe degenerative osteoarthritis left knee with varus deformity Post-op diagnosis: Severe degenerative osteoarthritis left knee with varus deformity Post-op findings: Severe degenerative osteoarthritis left knee with denudement of cartilage and varus deformity with slight flexion contracture Procedure done: Left total knee arthroplasty with Alban guidance Implants: The Rob total knee system with a size 5 triathlon beaded cruciate retaining femur left, a triathlon titanium tibial component size 6 beaded, a triathlon X3 tibial bearing CS insert size 6 X 9 mm and a beaded triathlon titanium asymmetric patella size 38 x 11 mm Specimens removed/disposition: None Surgeon: Maria Esther Dias MD Medication Care Manager: Tiffanie Duong, nurse practitioner, surgical assistance was necessary for positioning, retraction, implantation, and closure for the surgical procedure. Anesthesia: Spinal (With MAC, ASA 3) Estimated blood loss (mL): 90 Tourniquet time (min): 0 (No Lei) IV fluids (mL): 800 (+250 mL of albumin) Urine output (mL): 100 Complications: None Findings: Severe degenerative osteoarthritis with varus deformity and slight flexion contracture Condition: stable Disposition: PACU (Then to floor for postoperative rehabilitation and pain management) Brief History: This 88-year-old gentleman presented with complaints of bilateral knee pain, and after evaluation, he presents today for left total knee arthroplasty. When the patient was seen in the office, he noted that his left knee tends to feel out of alignment . He also had an injury to the left knee when he was much younger. He has to lean forward to stop himself from falling backwards secondary to his knee. X-rays demonstrated severe degenerative osteoarthritis worse in the left and in the right knee. After discussion, consents were signed in the office. Questions were answered, and plans were made for total knee arthroplasty with Alban guidance. Procedure: The patient was brought to the operating theater, and after undergoing spinal anesthetic, with MAC and with supplemental adductor canal block, ASA 3, the left lower extremity was prepped with Dura-Prep and draped in usual fashion following placement of a tourniquet high on the leg. The leg was then draped free.? Tourniquet was not elevated during the case.? A surgical pause was performed, and at the time of the surgical pause, we confirmed the site and side of surgery. Additionally, we confirmed the appropriate and timely administration of preoperative antibiotics, Ancef 2 g.? The availability of equipment was confirmed, and the patient's identity was verbalized as well. Following the surgical pause, an incision was made centering over the patella continuing proximally and distally as necessary to allow access to the knee joint. Dissection continued through skin and soft tissues using a scalpel. Hemostasis was obtained using electrocautery. The skin incision was followed by a median parapatellar arthrotomy. The leg was extended and the patella was able to be displaced laterally.? Appropriate arrays and markers were placed in appropriate position for use of the Alban.? Preoperative planning had been accomplished and was discussed in detail with the [facility] sales representative church furniture.? Intraoperative mapping of the femur and tibia was accomplished after the arrays were placed.? Internal markers were also placed.? Once we had accomplished the Alban mapping, we began the appropriate resections for placement of the prosthesis.? The plan was for a cruciate retaining right total knee arthroplasty. Once appropriate mapping had been accomplished retraction was established using manual retraction by surgical technicians and also the Alban leg positioner and retractors.? The knee was evaluated.? There was significant osteoarthritic change as well as very minimal flexion contracture as well as varus deformity.? Appropriate bone resection was accomplished using the Alban.? The femur was sized to a size 5.? Following femoral cuts, attention was directed to the tibia.? Osteophytes were removed prior to this portion of the procedure.? We had performed a minimal medial release at the beginning of the procedure to allow for placement of the array.? Proximal tibia was evaluated, and it was felt that appropriate size for the tibia was a size 6.? Tray was noted to fit nicely with good coverage.? Rim fit was accomplished with the size 6. A trial reduction was accomplished after osteophytes have been removed as well as the medial and lateral menisci.? We had removed the anterior cruciate ligament at the beginning of the case and preserved the posterior cruciate ligament.? Trial reduction was accomplished with a size 5 femoral cruciate retaining component, a size 6 tibial tray and a size 6 CS tibial bearing insert which was 9 mm.? Secondary to the balancing of the knee, we elected to place a 9 mm insert for the actual component. Alignment was felt to be appropriate as well.? Trial components were removed after the femur had been drilled.? Prior to removal of the tibial tray which had been pinned in position with appropriate rotation as determined by the Alban plan, we broached the tibia.? Subsequently, the 4 drill holes were made for the prosthetic component.? All trial components were removed, and the wound was irrigated.? Plans were made for insertion of the prosthetic components.? Prior to this, the patella was manually prepared.? After resection of the articular surface with the jogging system, it was measured and measured a 38 mm patella.? We resected approximately 10 mm of patella.? Patellar height was restored with the patellar component. Once again, the wound was irrigated.? The Tritanium tibia was impacted into position.? The beaded femur was then impacted into position in a cementless fashion. The CS tibial insert was placed prior to placement of the femoral component. The patella was pressed into position with a patellar clamp.? Exparel was injected about the components deep and superficially.? The knee was then copiously irrigated with betadine and saline and suctioned dry. Attention was then directed to closure. Closure was accomplished with 0 Vicryl in the fascial tissues.? The suture line of 0 Vicryl was supplemented with strata fix, #1, with a running stitch from proximal to distal and a second running stitch from distal to proximal.? This was followed by Surgiflo and vancomycin powder.? Following this, a 2-0 STRATAFIX was used in the subcutaneous tissues, and the skin was closed with 3-0 Strata fix.? Care was taken to assure an excellent subcutaneous as well as skin closure.? A sterile dressing was then placed consisting of Dermabond Prineo, OpSite, ABD, sterile soft roll, and an Lasha wrap including over the foot. The patient was returned the Recovery Room in a satisfactory condition. X-rays were obtained and reviewed there.? The patient will be discharged to the floor for postoperative rehabilitation and pain management. Related Problem List Diagnoses (1) Primary osteoarthritis of left knee:
--- NOTE | 2023-12-14 11:37 | XRR_ITS ---
PROCEDURE INFORMATION: Exam: XR Left Knee Exam date and time: 12/14/2023 11:40 AM Age: 88 years old Clinical indication: Device placement; Joint replacement hardware; Prior surgery; Surgery date: Post-operative (0-2 days); Surgery type: Lt knee; Additional info: Status post left total knee arthroplasty TECHNIQUE: Imaging protocol: Radiologic exam of the left knee. Views: 1 or 2 views. COMPARISON: CT knee LT [facility] [id number] 12/01/2023 3:15 PM FINDINGS: Bones/joints: There are postoperative changes status post left knee replacement. Components appear to be in anatomic alignment. There is air within the joint as well as within the surrounding soft tissues presumably related to recent surgery. No fracture is appreciated. Soft tissues: Normal. XR/XR knee LT 1-2V [id number] IMPRESSION: 1. Postoperative changes status post left knee replacement.
[2023-12-14] MEDS: oxyCODONE 5 mg IR Tab/Cap PO ×2 (12:26→16:56)
[2023-12-14] MEDS: chlorhexidine gluconate 0.12% Btl 473 mL 30 ML MUCOUS MEM ×3 (12:27→20:12)
[2023-12-14] MEDS: ceFAZolin 2,000 mg SDV 2000 MG IVP ×2 (15:18→23:40)
[2023-12-14] MEDS: pantoprazole DR 40 mg Tablet PO (15:18)
[2023-12-14] MEDS: water for injection-sterile 20 ML 6 ML (15:18)
--- NOTE | 2023-12-14 15:34 | ANE.PACU2 ---
Inpatient post-anesthesia follow up: Airway intact: Yes Vital signs: Temperature 97.5 F Pulse Rate 51 Respiratory Rate 15 Blood Pressure 120/75 Pulse Oximetry 97 Oxygen Delivery Me thod Room Air Oxygen Flow Rate Fraction of Inspir ed Oxygen Hydration adequate: Yes Nausea and vomiting: No Pain level: Other Pain level: controlled Mental status: Baseline Additional Comments: no apparent anesthetic complications noted
[2023-12-14] MEDS: sennosides-docusate Tablet 2 TAB PO (16:56)
[2023-12-14] MEDS: calcium carb-vit d 600mg/400unit 1 Tablet 1 EACH PO (16:56)
[2023-12-14] MEDS: iron polysaccharide complex 150 mg Capsule PO (16:56)
[2023-12-14] MEDS: tranexamic acid 1,000 MG/100 ML PREMIX 600 MG IV (16:57)
[2023-12-14] MEDS: CELEcoxib 200 mg Capsule PO (20:12)
[2023-12-14] MEDS: sacubitril/valsartan 24-26 mg Tablet 4 EACH PO (21:34)
[2023-12-15 04:00] VITALS: BP 152/79; PULSE 67; RESP 18; TEMP 36.4; O2SAT 98
[2023-12-15] MEDS: isosorbide mononitrate ER 30 mg Tablet PO (05:19)
[2023-12-15] MEDS: FUROsemide 40 mg Tablet PO (05:19)
[2023-12-15] MEDS: pantoprazole DR 40 mg Tablet PO (05:19)
[2023-12-15 05:25] LABS: Basophils % 0.3 %; Eosinophils # 0.1 10^3/uL (0.0-0.8); Eosinophils % 1.8 %; Hematocrit 33.5 % (37-53); Lymphocytes # 0.9 10^3/uL (0.8-4.8); Lymphocytes % 12.5 %; Mean Corpuscular HGB Conc 31.3 g/dL (30-55); Mean Corpuscular Hemoglobin 28.2 pg (27-33); Mean Corpuscular Volume 89.8 fl (82-101); Mean Platelet Volume 11.1 fL (7.4-10.4); Monocytes # 0.5 10^3/uL (0.2-0.9); Monocytes % 7.1 %; Neutrophils # 5.68 10^3/uL (1.8-7.7); Nucleated Red Blood Cells % 0 %; Platelet Count 116 10^3/cmm (157-399); Red Blood Count 3.73 10^6/uL (3.85-5.65); Red Cell Distribution Width 13.5 % (12.1-15.1); White Blood Count 7.28 10^3/uL (3.29-11.43)
[2023-12-15 05:39] LABS: Anion Gap 14.5 (5-19); Blood Urea Nitrogen 25 mg/dL (8-23); Calcium 8.1 mg/dL (8.5-10.5); Carbon Dioxide 25 mmol/L (22-29); Chloride 101 mmol/L (98-107); Creatinine Clr Calc Pharmacy 29.8675; Glucose 124 mg/dL (65-115); Osmolality Calculated 288 mOsm/kg (285-295); Potassium 4.5 mmol/L (3.5-5.1); Sodium 136 mmol/L (136-145)
[2023-12-15] MEDS: acetaminophen 1,000 MG/100 ML PIGGYBACK 400 MG IV (06:49)
[2023-12-15 08:00] VITALS: BP 177/74; PULSE 70; RESP 18; TEMP 36.8; O2SAT 99
[2023-12-15] MEDS: cholecalciferol (vitamin D3) 1,000 unit Tablet 1000 UNIT PO (09:10)
[2023-12-15] MEDS: aspirin 325 mg EC Tablet PO (09:10)
[2023-12-15] MEDS: ascorbic acid 500 mg Tablet PO (09:10)
[2023-12-15] MEDS: sennosides-docusate Tablet 2 TAB PO (09:11)
[2023-12-15] MEDS: CELEcoxib 200 mg Capsule PO (09:11)
[2023-12-15] MEDS: iron polysaccharide complex 150 mg Capsule PO (09:11)
[2023-12-15] MEDS: metoprolol succinate ER (24 HR) 100 mg Tablet 50 MG PO (09:11)
[2023-12-15] MEDS: potassium chloride ER 10 mEq Tablet PO (09:11)
[2023-12-15] MEDS: sacubitril/valsartan 24-26 mg Tablet 4 EACH PO (09:11)
[2023-12-15] MEDS: calcium carb-vit d 600mg/400unit 1 Tablet 1 EACH PO (09:11)
[2023-12-15] MEDS: mupirocin oint 22 gm 1 APPLIC NASAL (09:12)
[2023-12-15] MEDS: ceFAZolin 2,000 mg SDV 2000 MG IVP (09:12)
[2023-12-15] MEDS: oxyCODONE 5 mg IR Tab/Cap PO (09:14)
[2023-12-15] MEDS: chlorhexidine gluconate 0.12% Btl 473 mL 30 ML MUCOUS MEM (09:29)
[2023-12-15 11:41] VITALS: BP 116/61; PULSE 75; RESP 18; TEMP 36.8; O2SAT 95
--- NOTE | 2023-12-15 11:48 | PC.CHAP ---
Pastoral Care Encounter/Spiritual Assessment Type of Contact [] Declined teletypesetter operator visit [] Patient/Family/Request visit [] Outpatient visit [] Follow-up visit [] Physician referral [] Code/Alert [X] Routine visit [] Staff referral [] Actively dying [] Patient sleeping [] Family support [] [] Out of room [X] Palliative care [] [] Receiving care in room [] Pre-surgical visit [] Trauma [] Long length of stay [] ICU visit [] Other: Relational/Emotional Strength [] Patient feels connected with others/family/visitors/staff [] Distress [] Loneliness/isolation [] Abandonment Spirituality of Patient [] Person of Stephania [] Attends Moravian of their Stephania [] Believes in Prayer [] Reads Bible or Cheondoism materials [] There are Spiritual issues to be addressed Clinical Geneticist Interventions [] Prayer [] Active listening [] Non-anxious presence [] Spiritual/emotional support [] Crisis/trauma care [] Spiritual counseling [] Bereavement support [] Provided bereavement packet [] Provided Bible/devotional materials [] Provided toy/stuffed animal, coloring book to patient or family member [] Provided Communion [] Anointing/[place] [] Salvation [] Completed spiritual assessment [] Other: Impact on Illness or Injury [] Angry [] Fearful [] Anxious [] Often cries [] Exhaustion [] Unable to work [] Unable to attend mormon [] Unable to walk/stand [] Unable to read [] Unable to drive [] Unable to eat/drink [] Unable to sleep [] Unable to be with family [] Patient intubated [] Other: Summary Staff Time spent with patient 10 Min
--- NOTE | 2023-12-15 13:55 | PM.DCS ---
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 Procedure done: Left total knee arthroplasty with Alban guidance Implants: The Rob total knee system with a size 5 triathlon beaded cruciate retaining femur left, a triathlon titanium tibial component size 6 beaded, a triathlon X3 tibial bearing CS insert size 6 X 9 mm and a beaded triathlon titanium asymmetric patella size 38 x 11 mm Surgeon: Maria Esther Dias MD (2) Primary osteoarthritis of left knee: Status: Chronic Reason for Visit Reason for Visit: M17.12 Brief History: This 88-year-old man presented to the office for evaluation secondary to severe degenerative osteoarthritis of the left knee and severe pain secondary to this. After evaluation, he presents today for left total knee arthroplasty. When the patient was seen in the office, he noted that his left knee tends to feel out of alignment . He also had an injury to the left knee when he was much younger. He has to lean forward to stop himself from falling backwards secondary to his knee. X-rays demonstrated severe degenerative osteoarthritis worse in the left and in the right knee. he also had conservative measures which were not successful including injection therapy of viscosupplementation as well as corticosteroids, bracing, physical therapy, activity modification, and oral anti-inflammatories. The patient had difficulties with activities of daily living and wished to proceed with operative intervention in the form of left total knee arthroplasty. Hospital Course Hospital Course Patient was admitted under observation status following same-day surgery for Left total knee arthroplasty. Patient did well following the surgical procedure. He was able to be up in his room the next day and was felt independent and safe for discharge to home. Dressings were dry. His large outer dressing was removed, and there was no evidence of DVT. She was neurologically intact. He felt comfortable as well going home, therefore she was discharged to home. Physical Exam Const: COMMON NORMALS: no acute distress, average body habitus, patient oriented x3, no limitations, alert and well nourished GENERAL APPEARANCE: cooperative; not anxious and not combative ORIENTATION/CONSCIOUSNESS: Yes awake, Yes oriented to person, Yes oriented to place and Yes oriented to time HENMT: COMMON NORMALS: normocephalic and atraumatic HEAD & SCALP: normocephalic and atraumatic Resp: COMMON NORMALS: normal respiratory effort Extremity: LEFT LOWER EXTREMITY: Yes knee joint (No sign or symptom of infection) Left knee: Yes inspection (Dressing clean and dry. Mild swelling of joint. No erythema), Yes palpation (Mild TTP to anterior knee and distal quad), Yes ROM (AROM Flex: 85, Ext: lacking 10. ), Yes neurovascular exam (Sensation intact to light touch. 2+ DP and PT pulses.) and Yes other (Calf is soft, nontender. No evidence of DVT.) Neuro: COMMON NORMALS: patient oriented x3 SENSORIUM/ORIENTATION: Yes alert, Yes oriented to person, Yes oriented to place and Yes oriented to time Psych: ATTITUDE: Yes engaged Skin: COMMON NORMALS: no rashes or lesions noted, turgor normal and no jaundice GENERAL SKIN EXAM: no rashes or lesions noted and turgor normal Urinary Catheter Management: Lei: Cath Placed During This Visit: yes, but has since been removed by the nurse Reason for Continuing Indwelling Catheter: Decision to DC Catheter Urinary Catheter Date of Insertion: 12/14/23 Urinary Catheter Time of Insertion: 08:36 Date Urinary Catheter Removed: 12/15/23 Time Urinary Catheter Discontinued: 06:55 Discharge Data Studies Completed and Pending Pending at discharge Category Date Time Status XR knee LT 1-2V 41018 Routine Exams 12/14/23 11:37 Taken Complete Blood Count w/Auto AM LABS Lab 12/16/23 04:00 Ordered Complete Blood Count w/Auto AM LABS Lab 12/17/23 04:00 Ordered Laboratory Results WBC 7.28 10^3/uL (3.29-11.43) 12/15/23 04:45 RBC 3.73 10^6/uL (3.85-5.65) L 12/15/23 04:45 Hgb 10.50 g/dL (11.27-16.99) L 12/15/23 04:45 Hct 33.5 % (37-53) L 12/15/23 04:45 MCV 89.8 fl (82-101) 12/15/23 04:45 MCH 28.2 pg (27-33) 12/15/23 04:45 MCHC 31.3 g/dL (30-55) 12/15/23 04:45 RDW 13.5 % (12.1-15.1) 12/15/23 04:45 Plt Count 116 10^3/cmm (157-399) L 12/15/23 04:45 MPV 11.1 fL (7.4-10.4) H 12/15/23 04:45 Neut % (Auto) 78.0 % 12/15/23 04:45 Lymph % (Auto) 12.5 % 12/15/23 04:45 [place] % (Auto) 7.1 % 12/15/23 04:45 Eos % (Auto) 1.8 % 12/15/23 04:45 Baso % (Auto) 0.3 % 12/15/23 04:45 Neut # (Auto) 5.68 10^3/uL (1.8-7.7) 12/15/23 04:45 Lymph # (Auto) 0.9 10^3/uL (0.8-4.8) 12/15/23 04:45 [place] # (Auto) 0.5 10^3/uL (0.2-0.9) 12/15/23 04:45 Eos # (Auto) 0.1 10^3/uL (0.0-0.8) 12/15/23 04:45 Baso # (Auto) 0.0 10^3/uL (0.0-0.1) 12/15/23 04:45 Nucleated RBC % (auto) 0 % 12/15/23 04:45 Nucleated RBCs # 0.0 /100WBC 12/15/23 04:45 Sodium 136 mmol/L (136-145) 12/15/23 04:45 Potassium 4.5 mmol/L (3.5-5.1) 12/15/23 04:45 Chloride 101 mmol/L (98-107) 12/15/23 04:45 Carbon Dioxide 25 mmol/L (22-29) 12/15/23 04:45 Anion Gap 14.5 (5-19) 12/15/23 04:45 BUN 25 mg/dL (8-23) H 12/15/23 04:45 Creatinine 1.7 mg/dL (0.7-1.2) H 12/15/23 04:45 GFR Calculation Not Reportable 12/15/23 04:45 Glucose 124 mg/dL (65-115) H 12/15/23 04:45 Calculated Osmolality 288 mOsm/kg (285-295) 12/15/23 04:45 Calcium 8.1 mg/dL (8.5-10.5) L 12/15/23 04:45 Urine Color Yellow (Yellow) 12/13/23 10:44 Urine Appearance Slightly cloudy (CLEAR) 12/13/23 10:44 Urine pH 5 (5-7) 12/13/23 10:44 Ur Specific [place] 1.010 (1.005-1.030) 12/13/23 10:44 Urine Protein Neg (Negative) 12/13/23 10:44 Urine Glucose (UA) Norm (Normal) 12/13/23 10:44 Urine Ketones Negative (Negative) 12/13/23 10:44 Urine Blood Neg (Negative) 12/13/23 10:44 Urine Nitrate Negative (Negative) 12/13/23 10:44 Urine Bilirubin Neg (Negative) 12/13/23 10:44 Urine Urobilinogen Norm mg/dL (Negative) 12/13/23 10:44 Ur Leukocyte Esterase 2+ (Negative) H 12/13/23 10:44 Urine RBC 5-10 /hpf (0-2) H 12/13/23 10:44 Urine WBC 25-40 /hpf (0-5) H 12/13/23 10:44 Ur Squamous Epith Cells 0-4 /hpf (0-5) H 12/13/23 10:44 Amorphous Sediment Not Reportable 12/13/23 10:44 Urine Bacteria 1+ /hpf (NONE) H 12/13/23 10:44 Hyaline Casts 0-4 /lpf H 12/13/23 10:44 Urine Mucus 1+ /hpf 12/13/23 10:44 Vitals Last Vital Signs Temp 98.2 F 12/15/23 11:41 Pulse 75 12/15/23 11:41 Resp 18 12/15/23 11:41 BP 116/61 12/15/23 11:41 Pulse Ox 95 12/15/23 11:41 O2 Del Method Room Air 12/15/23 11:41 Discharge Plan Discharge Patient Disposition: Home Health Service Condition: Stable Prescriptions: New celecoxib 200 mg Capsule 200 mg PO DAILY Qty: 90 0RF hydrocodone-acetaminophen 7.5-325 mg tablet 1 tab PO TID PRN (Reason: pain) Qty: 15 0RF aspirin 325 mg Tablet,Delayed Release (Dr/Ec) 325 mg PO DAILY 60 Days Qty: 60 0RF Continued omeprazole 20 mg capsule,delayed release(DR/EC) 20 mg PO DAILY@0600 ascorbic acid (vitamin C) 1,000 mg tablet 500 mg PO DAILY potassium chloride 20 mEq tablet extended release 10 meq PO DAILY Qty: 50 3RF Hold Instructions: Resume on 05/06/21. Rx Instructions: Take 1 tab daily with furosemide Entresto 97-103 mg tablet 1 tab PO BID Qty: 180 3RF furosemide 40 mg tablet 40 mg PO QAM Qty: 90 3RF Hold Instructions: Resume on 05/06/21. Rx Instructions: Take 1 tab daily; may reduce to 1 tab every other day if dehydrated metoprolol succinate 100 mg tablet extended release 24 hr 50 mg PO DAILY Qty: 60 3RF isosorbide mononitrate 30 mg tablet extended release 24 hr 30 mg PO DAILY@0600 Qty: 90 3RF cholecalciferol (vitamin D3) [Vitamin D3] 25 mcg (1,000 unit) Tablet 25 mcg PO DAILY@0600 Discontinued aspirin [Adult Low Dose Aspirin] 81 mg tablet,delayed release (DR/EC) 81 mg PO DAILY@0600 Discharge Orders: Discharge Order (Routine); Ordered 12/15/23 Ordered By: Tiffanie Duong Referrals: [facility] [Outside] Maria Esther Dias MD [Physician] - 01/03/24 8:45 am Discharge Diet: Advance as tolerated and Usual diet Discharge Activity: Increase activity as tolerated, Limit activity as instructed, Use walker/crutches as instructed and As per PT/OT instructions Patient Instructions: Acute Wound Care (DC), Total Knee Replacement (GEN), Joint Replacement Stoplight, Opioid Safety, Post Anesthesia Care Activity Restrictions/Additional Instructions: Range of motion and strengthening per physical therapy. Gait training as well. You may weight-bear as tolerated. You may get your leg wet in the shower, but do not soak in standing water. Please remove the outer dressing in approximately 2 weeks. Follow-up as scheduled. Elevate and ice to left knee. Discharge Attestations Time Spent in Discharge Care*: greater than 30 min Quality Metrics Clinical Quality Measures [ No reported AMI, CVA or VTE this stay] Coding Level of Care Code Acute Code for Chg Fwd Diagnoses Status post total left knee replacement Z96.652 Primary osteoarthritis of left knee M17.12
[2023-12-15 15:47] VITALS: BP 116/61; PULSE 75; RESP 18; TEMP 36.8; O2SAT 95
== END 2023-12-15 15:48 | disposition home health service (06) ==
LOC: MEDSURG 11:09
PROVIDERS: Nurse Practitioner; Admitting Provider Specialist; PCP Family Medicine; Visit Provider Specialist
PROC: 8E0Y0CZ Robotic Assisted Procedure of Lower Extremity, Open Approach (ICD-10-PCS; CPT 27447; principal; 2023-12-14 08:05)
DX: M17.12 Unilateral primary osteoarthritis, left knee (principal); M21.162 Varus deformity, not elsewhere classified, left knee; I11.0 Hypertensive heart disease with heart failure; I50.22 Chronic systolic (congestive) heart failure; Z79.82 Long term (current) use of aspirin; N40.1 Benign prostatic hyperplasia with lower urinary tract symptoms; N13.8 Other obstructive and reflux uropathy
CPT/HCPCS: 20985; 27447; 36415; 51702; 73560; 80048; 81001; 85025; 97110; 97116; 97161; 97166; C1776; C9290; G0378; J0131; J0690; J2371; J2405; J2704; J2795; J3010; J3370; J3490; J7030; P9045

== ENCOUNTER → 2024-01-03 08:47 | Outpatient (BNVA) | payer OTHER, MEDICARE, SELFPAY | PROVIDERS: PCP Family Medicine; Visit Provider Specialist | DX: Z96.652 Presence of left artificial knee joint (principal) | CPT/HCPCS: 73560; 73565; 99024 ==

== ENCOUNTER → 2024-02-14 08:30 | Outpatient (BNVA) | payer OTHER, SELFPAY | PROVIDERS: PCP Family Medicine; Visit Provider Nurse Practitioner | DX: Z96.652 Presence of left artificial knee joint (principal) | CPT/HCPCS: 73560; 73565; 99213 ==

== ENCOUNTER → 2024-04-11 11:04 | Outpatient (BNVA) | payer OTHER, SELFPAY | PROVIDERS: PCP Family Medicine; Visit Provider Internal Medicine Cardiovascular Disease | DX: I11.0 Hypertensive heart disease with heart failure (principal); I50.22 Chronic systolic (congestive) heart failure; I49.9 Cardiac arrhythmia, unspecified; I42.8 Other cardiomyopathies | CPT/HCPCS: 99214 ==

== ENCOUNTER → 2024-07-12 10:20 | Outpatient (BNVA) | payer OTHER, SELFPAY | PROVIDERS: PCP Family Medicine; Visit Provider Nurse Practitioner Family | DX: I11.0 Hypertensive heart disease with heart failure (principal); I50.22 Chronic systolic (congestive) heart failure; I25.5 Ischemic cardiomyopathy; I49.8 Other specified cardiac arrhythmias | CPT/HCPCS: 99214 ==

== ENCOUNTER 2024-08-01 09:26 | Outpatient (CLI) | payer OTHER, SELFPAY ==
[2024-08-01 10:03] LABS: Basophils % 0.5 %; Eosinophils # 0.1 10^3/uL (0.0-0.8); Eosinophils % 2.8 %; Hematocrit 38.8 % (37-53); Lymphocytes # 1.1 10^3/uL (0.8-4.8); Lymphocytes % 29.3 %; Mean Corpuscular HGB Conc 31.7 g/dL (30-55); Mean Corpuscular Hemoglobin 27.3 pg (27-33); Mean Corpuscular Volume 86.2 fl (82-101); Mean Platelet Volume 10.6 fL (7.4-10.4); Monocytes # 0.5 10^3/uL (0.2-0.9); Monocytes % 12.4 %; Neutrophils # 2.11 10^3/uL (1.8-7.7); Neutrophils % 54.7 %; Nucleated Red Blood Cells % 0 %; Platelet Count 153 10^3/cmm (157-399); Red Cell Distribution Width 13.9 % (12.1-15.1); White Blood Count 3.86 10^3/uL (3.29-11.43)
[2024-08-01 10:13] LABS: Albumin Level 4.2 g/dL (3.5-5.2); Anion Gap 14.8 (5-19); Blood Urea Nitrogen 21 mg/dL (8-23); Calcium 8.9 mg/dL (8.5-10.5); Carbon Dioxide 26 mmol/L (22-29); Chloride 103 mmol/L (98-107); Glucose 103 mg/dL (65-115); Phosphorus 3.4 mg/dL (2.5-4.5); Potassium 4.8 mmol/L (3.5-5.1); Sodium 139 mmol/L (136-145)
[2024-08-01 10:15] LABS: Calcium 9.1 mg/dL (8.5-10.5)
[2024-08-01 10:16] LABS: Creatinine Urine, Random 10 mg/dL (39-259); Microalbumin Random Urine 1 ug/dL (0-20)
[2024-08-01 10:17] LABS: Microalbum Creatinine Ratio Ur 100 mg/dL (0-20)
[2024-08-01 10:22] LABS: Parathyroid Hormone 67.4 pg/mL (15-65)
== END 2024-08-01 09:27 | disposition home or self-care (01) ==
LOC: LAB 09:28
PROVIDERS: PCP Family Medicine; Visit Provider Nurse Practitioner Family
DX: N18.32 Chronic kidney disease, stage 3b (principal)
CPT/HCPCS: 36415; 80069; 82044; 82310; 83970; 85025

== ENCOUNTER → 2024-11-18 08:03 | Outpatient (BNVA) | payer OTHER, SELFPAY | PROVIDERS: PCP Family Medicine; Visit Provider Nurse Practitioner | DX: Z96.652 Presence of left artificial knee joint (principal) | CPT/HCPCS: 73560; 73565; 99214 ==

== ENCOUNTER → 2025-01-13 10:56 | Outpatient (BNVA) | payer OTHER, SELFPAY | PROVIDERS: PCP Family Medicine; Visit Provider Internal Medicine Cardiovascular Disease | DX: I11.0 Hypertensive heart disease with heart failure (principal); I50.22 Chronic systolic (congestive) heart failure; I49.9 Cardiac arrhythmia, unspecified; I42.8 Other cardiomyopathies; R53.83 Other fatigue; Z79.82 Long term (current) use of aspirin; R06.02 Shortness of breath; I42.9 Cardiomyopathy, unspecified; Z79.01 Long term (current) use of anticoagulants | CPT/HCPCS: 36415; 80048; 83880; 85025; 99214 ==

== ENCOUNTER 2025-02-10 10:05 | Outpatient (CLI) | payer OTHER, SELFPAY ==
--- NOTE | 2025-02-10 11:15 | USCV_ITS ---
Manny Melendez Age: 89 Gender: M : 1935 Exam Date: 02/10/2025 10:28 Ordering Phys: Dorothy Webster MD ([email or web address]) Technologist: [email or web address] Exam Location: [facility] [place] Indication: Cardiomyopathy BP: 110 / 58 HR: Rhythm: Sinus Technical Quality: Adequate MEASUREMENTS (Male / Female) Normal Values 2D ECHO LV Diastolic Diameter PLAX 4.6 cm 4.2 - 5.9 / 3.9 - 5.3 cm IVS Diastolic Thickness 1.3 cm 0.6 - 1.0 / 0.6 - 0.9 cm IVS Systolic Thickness 1.8 cm LVPW Diastolic Thickness 1.5 cm 0.6 - 1.0 / 0.6 - 0.9 cm LVPW Systolic Thickness 1.8 cm LVOT Diameter 1.9 cm LV Ejection Fraction 2D Teich 60.4 % LV Ejection Fraction MOD 4C 65.8 % LV Ejection Fraction MOD 2C 70.1 % LV Ejection Fraction 2C AL 70.1 % LA Diameter 2.6 cm RA Systolic Volume 4C AL 33.7 ml RA Systolic Volume 4C MOD 33.5 ml LA Sys Volume AL 51.6 cm cubed LA Sys Volume Index AL 28.0 cm cubed/m squared Aorta at Sinotubular Diameter 2.8 cm IVC Diameter 1.3 cm M-MODE LA Ao Ratio MM 1.3 AV Cusp Separation MM 1.3 cm FINDINGS Left Ventricle Normal left ventricular size and systolic function, EF 60-65%. No regional wall motion abnormalities. Mild left ventricular hypertrophy. Right Ventricle Normal in size and function Right Atrium Normal in size Left Atrium Appears to be dilated. Mitral Valve Mitral valve is thickened. Aortic Valve Thickened aortic valve. Tricuspid Valve Grossly normal Pulmonic Valve Not well visualized Pericardium Normal Aorta Normal in size IVC Appears to be normal CONCLUSIONS LV systolic function is normal with EF of 60-65% Mild LVH Remy Gonsalez MD (Electronically Signed) Final Date: 16 February 2025 19:02 S
== END 2025-02-10 10:06 | disposition home or self-care (01) ==
LOC: RAD 10:05
PROVIDERS: PCP Family Medicine; Visit Provider Internal Medicine Cardiovascular Disease
DX: I42.9 Cardiomyopathy, unspecified (principal); I51.7 Cardiomegaly; I35.0 Nonrheumatic aortic (valve) stenosis
CPT/HCPCS: 93308